=== PATIENT | female | born 1940 ===

== ENCOUNTER 2017-04-23 09:22 | Inpatient (IN) | payer OTHER ==
[2017-04-23] MEDS ORDERED: Aspirin 325 mg EC Tablets PO STA (10:00)
--- NOTE | 2017-04-23 10:04 | C.PDOC ---
History Of Present Illness 76 yo female, hx of htn, hld, presents with cp. as per pt, pain started yesterday, no fevers, cough, n/v/d, urinary changes. pt cannot characterized pain Time Seen by Provider: 04/23/17 09:36 Chief Complaint (Nursing): Chest Pain Past Medical History Reviewed: Historical Data, Nursing Documentation, Vital Signs Vital Signs: Last Vital Signs Temp 97.7 F 04/23/17 09:44 Pulse 58 L 04/23/17 11:27 Resp 18 04/23/17 11:27 BP 138/69 04/23/17 11:27 Pulse Ox 99 04/23/17 13:25 - Medical History PMH: Alzheimer's Disease (beginning stages), Diabetes, HTN, Hypercholesterolemia Denies: Chronic Kidney Disease - [facility] Procedures CATARAC PHACOEMULS/ASPIR (03/22/13) INSERT LENS AT CATAR EXT (03/22/13) Family History: States: Unknown Family Hx - Social History Hx Tobacco Use: No Hx Alcohol Use: No Hx Substance Use: No - Immunization History Hx Tetanus Toxoid Vaccination: No Hx Influenza Vaccination: No Hx Pneumococcal Vaccination: No Review Of Systems Except As Marked, All Systems Reviewed And Found Negative. Cardiovascular: Positive for: Chest Pain Physical Exam - Physical Exam Appears: Well, No Acute Distress Skin: Normal Color, Warm, Dry Eye(s): bilateral: Normal Inspection, PERRL, EOMI Nose: Normal Throat: Normal Neck: Normal Chest: Tenderness (mild midsternal) Cardiovascular: Rhythm Regular Respiratory: Normal Breath Sounds Gastrointestinal/Abdominal: Normal Exam Back: Normal Inspection Extremity: Normal ROM ED Course And Treatment - Laboratory Results Result Diagrams: 04/23/17 10:05 04/23/17 10:05 O2 Sat by Pulse Oximetry: 99 Medical Decision Making Medical Decision Making: cp r/o acs. ekg sinus ward [address] t wave changes, no change from previous. Disposition - Disposition Disposition: HOSPITALIZED Disposition Time: 01:00 Condition: STABLE - Clinical Impression Clinical Impression: Chest pain Decision To Admit - Pt Status Changed To: Hospital Disposition Of: Observation - . Bed Request Type: Telemetry Admitting Physician: Malgorzata Davalos Patient Diagnosis: Chest pain
[2017-04-23 10:12] LABS: BASO % 0.5 % (0.0-2.0); EOS # 0.1 K/uL (0.0-0.7); HEMATOCRIT 38.7 % (34.0-47.0); LYMPH # 2.5 K/uL (1.0-4.3); LYMPH % 32.9 % (20.0-40.0); MEAN CELL VOLUME 87.3 fL (81.0-99.0); MEAN CORPUSCULAR HEMOGLOBIN 29.9 pg (27.0-31.0); MEAN CORPUSCULAR HGB CONC 34.3 g/dL (33.0-37.0); MEAN PLATELET VOLUME 9.5 fL (7.2-11.7); MONO # 0.4 K/uL (0.0-0.8); RED CELL DISTRIBUTION WIDTH 13.3 % (11.5-14.5); WHITE BLOOD COUNT 7.7 K/uL (4.8-10.8)
[2017-04-23 10:20] LABS: INR 1.1; PARTIAL THROMBOPLASTIN TIME 31 SECONDS (21-34)
[2017-04-23 10:22] LABS: ALKALINE PHOSPHATASE 43 U/L (38-126); ALT/SGPT 33 U/L (9-52); AST/SGOT 29 U/L (14-36); BILIRUBIN,TOTAL 0.8 mg/dL (0.2-1.3); BLOOD UREA NITROGEN 15 mg/dL (7-17); CALCIUM 9.3 mg/dl (8.6-10.4); CARBON DIOXIDE 24 mmol/L (22-30); CHLORIDE 99 mmol/L (98-107); GFR AFRICAN-AMERICAN > 60; GLUCOSE,RANDOM 60 mg/dL (65-105); POTASSIUM 3.8 mmol/L (3.6-5.2); SODIUM 135 mmol/L (132-148)
--- NOTE | 2017-04-23 10:46 | RAD ---
PROCEDURE: CHEST RADIOGRAPH, 1 VIEW HISTORY: chest pain COMPARISON: 03/09/2016 FINDINGS: LUNGS: Clear. PLEURA: No pneumothorax or pleural fluid seen. CARDIOVASCULAR: Normal. OSSEOUS STRUCTURES: No significant abnormalities. VISUALIZED UPPER ABDOMEN: Normal. OTHER FINDINGS: None. IMPRESSION: No active disease.
--- NOTE | 2017-04-23 13:35 | CP.PCM.CON ---
Addendum entered and electronically signed by Pete Armstrong DO 21:18: Note that ESR and CRP added to orders Original Note: <Pete Armstrong - Last Filed: 04/23/17 20:43> History of Present Illness - History of Present Illness History of Present Illness: Cardiology consult note for Dr. Randy Jeong DO, PGY-8 Reason For Consult: CP r/o ACS HPI: 76 F with pertinent PMHx of DM, HTN, HLD, presents with 18 hour duration of sharp, non-radiating, waxing and waning cp of 8/10 severity, which gets better at rest and is agitated by pressing on cw, and is associated with mild n/v and sob. Pt denies any family or personal history of cardiac events. Of note, she was admitted for chest pain in 03/2016, but she reports that this time the cp feels different. Pt lives a fairly active lifestyle and is able to walk for extended periods of time without sob. Pt does not complain of claudication or pain-limited movement. At this time, patient is not experiencing any cp except when palpated. Emesis and sob have resolved, but patient states that she does feel dizzy. 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 Of note, patient did have a recent URI which has resolved recently. Pt denies f/ch/diarrhea/dysuria/frequency/urgency/hematuria/hematochezia/ hematemesis. Pt's daughter Alfred? at bedside providing translation PSHx: Cataracts b/l PMHx: DM, HTN, HLD, Alzheimer's All: NKDA SocHx: Denies EtOH, drug use, illicit drug use; lives with daughter and grandson Hosp: 03/2016 CP FamHx: Brother- DM (); sister- DM Meds: Metformin 500mg PO BID, Fenofibrate 48 mg daily, Lisinopirl 30mg daily, Simvastatin 10mg daily PMD: [facility] ROS: Const'l: pt denies fever, chills, generalized weakness ENT: pt denies dysphagia, otalgia, hearing deficit, rhinorrhea Eyes: pt denies sudden loss of vision, diplopia, blurred vision MSK: pt denies muscle stiffness, joint pain, extremity cramping Cardio: + see hpi Pulm: pt denies cough, hemoptysis, wheeze GI: + a few bouts of emesis a few days ago + n/v; pt denies loss of appetite , abdominal pain, constipation, melena, d : pt denies burning on urination, urinary frequency, hematuria, urinary urgency Neuro: pt denies paresis, paresthesia, dizziness, aldridge, numbness, tingling Derm: pt denies skin changes, lesions, nail changes Endo: pt denies intolerance to heat/cold, diaphoresis, night sweats, polydipsia Psych: pt denies anxiety, depression, mood changes Past Patient History - Infectious Disease Hx of Infectious Diseases: None - Past Medical History & Family History Past Medical History?: Yes - Past Social History Smoking Status: Never Smoked - CARDIAC Hx Hypercholesterolemia: Yes Hx Hypertension: Yes - PULMONARY Hx Respiratory Disorders: No - NEUROLOGICAL Hx Alzheimer's Disease: Yes (beginning stages) - HEENT Hx HEENT Problems: No - RENAL Hx Chronic Kidney Disease: No - ENDOCRINE/METABOLIC Hx Endocrine Disorders: Yes Hx Diabetes Mellitus Type 1: Yes - HEMATOLOGICAL/ONCOLOGICAL Hx Blood Disorders: No - INTEGUMENTARY Hx Dermatological Problems: No - MUSCULOSKELETAL/RHEUMATOLOGICAL Hx Musculoskeletal Disorders: No Hx Falls: No - GASTROINTESTINAL Hx Gastrointestinal Disorders: No - GENITOURINARY/GYNECOLOGICAL Hx Genitourinary Disorders: No - PSYCHIATRIC Hx Substance Use: No - SURGICAL HISTORY Hx Surgeries: Yes Hx Cataract Extraction: Yes - ANESTHESIA Hx Anesthesia: Yes Hx Anesthesia Reactions: No Hx Malignant Hyperthermia: No Meds Allergies/Adverse Reactions: Allergies Allergy/AdvReac Type Severity Reaction Status Date / Time No Known Allergies Allergy Verified 06/22/15 20:48 - Medications Medications: Current Medications Donepezil HCl (Aricept) 10 mg PO HS MINAL Ergocalciferol (Drisdol 50,000 Intl Units Cap) 1 cap PO QWK [facility] Heparin Sodium (Porcine) (Heparin) 5,000 units SC Q8 MINAL Lisinopril (Zestril) 20 mg PO DAILY MINAL Ondansetron HCl (Zofran Inj) 4 mg IVP Q6 PRN PRN Reason: Nausea/Vomiting Rosuvastatin Calcium (Crestor) 10 mg PO HS MINAL Physical Exam - Additional Findings Additional findings: Phys Exam: VS as below Const'l: a&o x 4, nad, pleasant, [place] island[place] speaking Head/Neck: neck supple, no jvd, trachea midline, carotid midline, no cervical /head mass Eyes: mitali, nonicteric sclera, eom intact ENT: auditory acuity grossly intact, throat not congested, no nasal deformity Cardio: +TTP at LSB; rrr, no m/r/g, no carotid bruit, nml s1, s2 Pulm: no accessory muscle use, equal nml breath sounds bilaterally, ctab Abd: s/nt/nd, nbs x 4 q, no palpable masses Derm: no rashes, no ulcers, no lesions Extr: no edema, no cyanosis, no calf tenderness, no lesions, no varicosities Neuro: cn II-XII grossly intact, ue and le 5/5 muscle strength bilaterally, no los ue, le bilaterally and core Results - Vital Signs Recent Vital Signs: Last Vital Signs Temp 97.7 F 04/23/17 09:44 Pulse 58 L 04/23/17 11:27 Resp 18 04/23/17 11:27 BP 138/69 04/23/17 11:27 Pulse Ox 99 04/23/17 13:25 - Labs Result Diagrams: 04/23/17 10:05 04/23/17 10:05 Labs: Laboratory Results - last 24 hr 04/23/17 04/23/17 04/23/17 09:40 10:05 10:05 WBC 7.7 RBC 4.44 Hgb 13.3 Hct 38.7 MCV 87.3 MCH 29.9 MCHC 34.3 RDW 13.3 Plt Count 185 MPV 9.5 Neut % (Auto) 60.6 Lymph % (Auto) 32.9 [place] % (Auto) 5.0 Eos % (Auto) 1.0 Baso % (Auto) 0.5 Neut # 4.7 Lymph # 2.5 [place] # 0.4 Eos # 0.1 Baso # 0.0 PT 13.0 H INR 1.1 APTT 31 D-Dimer, Quantitative < 200 Sodium Potassium Chloride Carbon Dioxide Anion Gap BUN Creatinine Est GFR ( Amer) Est GFR (Non-Af Amer) POC Glucose (mg/dL) 60 L Random Glucose Hemoglobin A1c Calcium Total Bilirubin AST ALT Alkaline Phosphatase Troponin I NT-Pro-B Natriuret Pep Total Protein Albumin Globulin Albumin/Globulin Ratio Lipase Influenza Typ A,B (EIA) 04/23/17 04/23/17 04/23/17 10:05 10:21 12:20 WBC RBC Hgb Hct MCV MCH MCHC RDW Plt Count MPV Neut % (Auto) Lymph % (Auto) [place] % (Auto) Eos % (Auto) Baso % (Auto) Neut # Lymph # [place] # Eos # Baso # PT INR APTT D-Dimer, Quantitative Sodium 135 Potassium 3.8 Chloride 99 Carbon Dioxide 24 Anion Gap 16 BUN 15 Creatinine 0.6 L Est GFR ( Amer) > 60 Est GFR (Non-Af Amer) > 60 POC Glucose (mg/dL) 105 Random Glucose 60 L Hemoglobin A1c 7.4 H Calcium 9.3 Total Bilirubin 0.8 AST 29 ALT 33 Alkaline Phosphatase 43 Troponin I < 0.0120 NT-Pro-B Natriuret Pep 31.1 Total Protein 9.0 H Albumin 4.6 Globulin 4.4 H Albumin/Globulin Ratio 1.0 Lipase 56 Influenza Typ A,B (EIA) 04/23/17 12:30 WBC RBC Hgb Hct MCV MCH MCHC RDW Plt Count MPV Neut % (Auto) Lymph % (Auto) [place] % (Auto) Eos % (Auto) Baso % (Auto) Neut # Lymph # [place] # Eos # Baso # PT INR APTT D-Dimer, Quantitative Sodium Potassium Chloride Carbon Dioxide Anion Gap BUN Creatinine Est GFR ( Amer) Est GFR (Non-Af Amer) POC Glucose (mg/dL) Random Glucose Hemoglobin A1c Calcium Total Bilirubin AST ALT Alkaline Phosphatase Troponin I NT-Pro-B Natriuret Pep Total Protein Albumin Globulin Albumin/Globulin Ratio Lipase Influenza Typ A,B (EIA) Negative for flu a/b Assessment & Plan - Assessment and Plan (Free Text) Assessment: A/P 76 F with PMHx pertinent for DM, HLD, HTN presenting with CP. Was last here in 03/2017 for similar complaints. EKG - Sinus ward with non-specific T Changes, but no JIMENEZ; on exam, NSR; Tropes - Neg X 1. CP is reproducible on exam Chest Pain r/o ACS, likely 2/2 Musculoskeletal Pain - Tropes negative X 1, EKG shows NSR at bedside, Sinus ward on admission - ECHO ordered - We will reassess DM - RISS HTN - Lisinopirl 30mg daily HLD - Fenofibrate 48 mg daily, , Simvastatin 10mg daily Asymptomatic Sinus Bradycardia - Continue to monitor Thank you for this interesting consult Pete Jeong DO PGY - 1, d/w Dr. Padilla <RandyRobert - Last Filed: 04/24/17 22:48> Meds - Medications Medications: Current Medications Donepezil HCl (Aricept) 10 mg PO HS MINAL Ergocalciferol (Drisdol 50,000 Intl Units Cap) 1 cap PO QWK MINAL Heparin Sodium (Porcine) (Heparin) 5,000 units SC Q8 MINAL Last Admin: 04/23/17 14:25 Dose: 5,000 units Lisinopril (Zestril) 20 mg PO DAILY MINAL Ondansetron HCl (Zofran Inj) 4 mg IVP Q6 PRN PRN Reason: Nausea/Vomiting Pantoprazole Sodium (Protonix Ec Tab) 40 mg PO DAILY MINAL Rosuvastatin Calcium (Crestor) 10 mg PO HS MINAL Results - Vital Signs Recent Vital Signs: Last Vital Signs Temp 97.7 F 04/23/17 12:45 Pulse 62 04/23/17 12:45 Resp 18 04/23/17 12:45 BP 136/69 04/23/17 12:45 Pulse Ox 99 04/23/17 13:25 - Labs Result Diagrams: 04/24/17 11:44 04/24/17 10:16 Labs: Laboratory Results - last 24 hr 04/23/17 04/23/17 04/23/17 09:40 10:05 10:05 WBC 7.7 RBC 4.44 Hgb 13.3 Hct 38.7 MCV 87.3 MCH 29.9 MCHC 34.3 RDW 13.3 Plt Count 185 MPV 9.5 Neut % (Auto) 60.6 Lymph % (Auto) 32.9 [place] % (Auto) 5.0 Eos % (Auto) 1.0 Baso % (Auto) 0.5 Neut # 4.7 Lymph # 2.5 [place] # 0.4 Eos # 0.1 Baso # 0.0 PT 13.0 H INR 1.1 APTT 31 D-Dimer, Quantitative < 200 Sodium Potassium Chloride Carbon Dioxide Anion Gap BUN Creatinine Est GFR ( Amer) Est GFR (Non-Af Amer) POC Glucose (mg/dL) 60 L Random Glucose Hemoglobin A1c Calcium Total Bilirubin AST ALT Alkaline Phosphatase Troponin I NT-Pro-B Natriuret Pep Total Protein Albumin Globulin Albumin/Globulin Ratio Lipase Influenza Typ A,B (EIA) 04/23/17 04/23/17 04/23/17 10:05 10:21 12:20 WBC RBC Hgb Hct MCV MCH MCHC RDW Plt Count MPV Neut % (Auto) Lymph % (Auto) [place] % (Auto) Eos % (Auto) Baso % (Auto) Neut # Lymph # [place] # Eos # Baso # PT INR APTT D-Dimer, Quantitative Sodium 135 Potassium 3.8 Chloride 99 Carbon Dioxide 24 Anion Gap 16 BUN 15 Creatinine 0.6 L Est GFR ( Amer) > 60 Est GFR (Non-Af Amer) > 60 POC Glucose (mg/dL) 105 Random Glucose 60 L Hemoglobin A1c 7.4 H Calcium 9.3 Total Bilirubin 0.8 AST 29 ALT 33 Alkaline Phosphatase 43 Troponin I < 0.0120 NT-Pro-B Natriuret Pep 31.1 Total Protein 9.0 H Albumin 4.6 Globulin 4.4 H Albumin/Globulin Ratio 1.0 Lipase 56 Influenza Typ A,B (EIA) 04/23/17 12:30 WBC RBC Hgb Hct MCV MCH MCHC RDW Plt Count MPV Neut % (Auto) Lymph % (Auto) [place] % (Auto) Eos % (Auto) Baso % (Auto) Neut # Lymph # [place] # Eos # Baso # PT INR APTT D-Dimer, Quantitative Sodium Potassium Chloride Carbon Dioxide Anion Gap BUN Creatinine Est GFR ( Amer) Est GFR (Non-Af Amer) POC Glucose (mg/dL) Random Glucose Hemoglobin A1c Calcium Total Bilirubin AST ALT Alkaline Phosphatase Troponin I NT-Pro-B Natriuret Pep Total Protein Albumin Globulin Albumin/Globulin Ratio Lipase Influenza Typ A,B (EIA) Negative for flu a/b Assessment & Plan (1) Chest pain Assessment and Plan: sx typical of CAD will need further ischemic evaluation Status: Acute (2) Sinus bradycardia Status: Acute (3) Diabetes Status: Chronic Priority: Medium (4) HLD (hyperlipidemia) Status: Chronic Priority: Medium (5) HTN (hypertension) Status: Chronic Priority: Medium Attending/Attestation - Attestation I have personally seen and examined this patient.: Yes I have fully participated in the care of the patient.: Yes I have reviewed all pertinent clinical information: Yes Notes (Text): 04/24/17 22:47 chest pain atypical - reproducible cont to monitor BP control further w/u based on echo findings
--- NOTE | 2017-04-23 13:51 | CP.PCM.HP ---
<Jordana,Edgar R - Last Filed: 04/23/17 18:53> History of Present Illness - History of Present Illness History of Present Illness: CC: "I'm having chest pain" HPI: Translation provided by daughter who was bedside. This is a 76 year old female with a PMHx of HTN, DM2, HLD, Alzheimers, who presents to the ER for a 48 hour history of dizziness, non-bloody/non-bilious emesis x5 and a 24 hour history of left sided intermittent chest pain that she describes as sharp in quality, rated 8/10, and that is reproducible. She also reports diaphoresis with the chest pain. She denies radiation of pain into her arms or neck. In the last 1 week she's also had a decrease in appetite with associated nausea as well as a frontotemporal headache. She was admitted for chest pain in 03/2016 but says this type of chest pain is different from that admission. 2 weeks ago she had a URI and was given OTC theraflu and the symptoms have resolved. Per daughter, she has a recent diagnosis of alzheimer's 10/2016 and began to see Neurologist Dr Cartwright beginning in 10/2016. At baseline the patient is able to ambulate, she lives with her daughter at home who is involved with the patient's care. PMD: Dr Marrero PMHx: DM, HTN, HLD, Alzhemer's (diagnosed 10/2016) PSHx: cataracts both eyes, L ankle surgery Home medications: Metformin 500mg PO BID, Fenofibrate 48 mg daily, Lisinopirl 30mg daily, Simvastatin 10mg daily Allergies: no known allergies FamHx: Brother- DM (); sister- DM SocialHx: denies EtOH, tobacco use, illicit drug use; lives with daughter and grandson Present on Admission - Present on Admission Any Indicators Present on Admission: No Review of Systems - Constitutional Constitutional: Fatigue, Headache, Weakness. absent: Chills, Fever, Increased Appetite, Night Sweats - EENT Eyes: absent: Change in Vision Ears: absent: Ear Pain Nose/Mouth/Throat: absent: Nasal Discharge - Cardiovascular Cardiovascular: Chest Pain, Diaphoresis. absent: Dyspnea on Exertion, Pain Radiating to Arm/Neck/Jaw, Leg Edema, Lightheadedness, Palpitations, Syncope Additional comments: As per HPI - Respiratory Respiratory: absent: Cough, Dyspnea, Hemoptysis, Wheezing - Gastrointestinal Gastrointestinal: Abdominal Pain, Nausea. absent: Constipation, Diarrhea, Vomiting Additional comments: epigastric - Genitourinary Genitourinary: absent: Dysuria - Musculoskeletal Musculoskeletal: Back Pain. absent: Myalgias - Integumentary Integumentary: absent: Lesions - Neurological Neurological: Dizziness. absent: Confusion, Convulsions Past Patient History - Infectious Disease Hx of Infectious Diseases: None - Past Medical History & Family History Past Medical History?: Yes - Past Social History Smoking Status: Never Smoked - CARDIAC Hx Hypercholesterolemia: Yes Hx Hypertension: Yes - PULMONARY Hx Respiratory Disorders: No - NEUROLOGICAL Hx Alzheimer's Disease: Yes (beginning stages) - HEENT Hx HEENT Problems: No - RENAL Hx Chronic Kidney Disease: No - ENDOCRINE/METABOLIC Hx Endocrine Disorders: Yes Hx Diabetes Mellitus Type 1: Yes - HEMATOLOGICAL/ONCOLOGICAL Hx Blood Disorders: No - INTEGUMENTARY Hx Dermatological Problems: No - MUSCULOSKELETAL/RHEUMATOLOGICAL Hx Musculoskeletal Disorders: No Hx Falls: No - GASTROINTESTINAL Hx Gastrointestinal Disorders: No - GENITOURINARY/GYNECOLOGICAL Hx Genitourinary Disorders: No - PSYCHIATRIC Hx Substance Use: No - SURGICAL HISTORY Hx Surgeries: Yes Hx Cataract Extraction: Yes - ANESTHESIA Hx Anesthesia: Yes Hx Anesthesia Reactions: No Hx Malignant Hyperthermia: No Meds Allergies/Adverse Reactions: Allergies Allergy/AdvReac Type Severity Reaction Status Date / Time No Known Allergies Allergy Verified 06/22/15 20:48 Physical Exam - Constitutional Appears: In Acute Distress - Head Exam Head Exam: ATRAUMATIC, NORMAL INSPECTION - Eye Exam Eye Exam: EOMI Pupil Exam: PERRL - ENT Exam ENT Exam: Mucous Membranes Dry - Neck Exam Neck exam: Positive for: Normal Inspection. Negative for: Lymphadenopathy, Tenderness - Respiratory Exam Respiratory Exam: Clear to Auscultation Bilateral, NORMAL BREATHING PATTERN. absent: Rales, Rhonchi, Wheezes - Cardiovascular Exam Cardiovascular Exam: REGULAR RHYTHM, +S1, +S2. absent: Bradycardia, Tachycardia , Irregular Rhythm, JVD, Systolic Murmur - GI/Abdominal Exam GI & Abdominal Exam: Guarding, Normal Bowel Sounds, Soft, Tenderness. absent: Distended, Firm, Hernia, Rebound, Rigid Additional comments: tender to palpation in epigastric region - Extremities Exam Extremities exam: Positive for: normal capillary refill, normal inspection, pedal pulses present. Negative for: calf tenderness, pedal edema - Back Exam Back exam: tenderness - Neurological Exam Neurological exam: Alert, CN II-XII Intact, Oriented x3 - Psychiatric Exam Psychiatric exam: Normal Affect, Normal Mood - Skin Skin Exam: Intact, Normal Color, Warm Results - Vital Signs Recent Vital Signs: Last Vital Signs Temp 97.7 F 04/23/17 12:45 Pulse 62 04/23/17 12:45 Resp 18 04/23/17 12:45 BP 136/69 04/23/17 12:45 Pulse Ox 99 04/23/17 13:25 - Labs Result Diagrams: 04/23/17 10:05 04/23/17 10:05 Labs: Laboratory Results - last 24 hr 04/23/17 04/23/17 04/23/17 09:40 10:05 10:05 WBC 7.7 RBC 4.44 Hgb 13.3 Hct 38.7 MCV 87.3 MCH 29.9 MCHC 34.3 RDW 13.3 Plt Count 185 MPV 9.5 Neut % (Auto) 60.6 Lymph % (Auto) 32.9 [place] % (Auto) 5.0 Eos % (Auto) 1.0 Baso % (Auto) 0.5 Neut # 4.7 Lymph # 2.5 [place] # 0.4 Eos # 0.1 Baso # 0.0 PT 13.0 H INR 1.1 APTT 31 D-Dimer, Quantitative < 200 Sodium Potassium Chloride Carbon Dioxide Anion Gap BUN Creatinine Est GFR ( Amer) Est GFR (Non-Af Amer) POC Glucose (mg/dL) 60 L Random Glucose Hemoglobin A1c Calcium Total Bilirubin AST ALT Alkaline Phosphatase Troponin I NT-Pro-B Natriuret Pep Total Protein Albumin Globulin Albumin/Globulin Ratio Lipase Influenza Typ A,B (EIA) 04/23/17 04/23/17 04/23/17 10:05 10:21 12:20 WBC RBC Hgb Hct MCV MCH MCHC RDW Plt Count MPV Neut % (Auto) Lymph % (Auto) [place] % (Auto) Eos % (Auto) Baso % (Auto) Neut # Lymph # [place] # Eos # Baso # PT INR APTT D-Dimer, Quantitative Sodium 135 Potassium 3.8 Chloride 99 Carbon Dioxide 24 Anion Gap 16 BUN 15 Creatinine 0.6 L Est GFR ( Amer) > 60 Est GFR (Non-Af Amer) > 60 POC Glucose (mg/dL) 105 Random Glucose 60 L Hemoglobin A1c 7.4 H Calcium 9.3 Total Bilirubin 0.8 AST 29 ALT 33 Alkaline Phosphatase 43 Troponin I < 0.0120 NT-Pro-B Natriuret Pep 31.1 Total Protein 9.0 H Albumin 4.6 Globulin 4.4 H Albumin/Globulin Ratio 1.0 Lipase 56 Influenza Typ A,B (EIA) 04/23/17 12:30 WBC RBC Hgb Hct MCV MCH MCHC RDW Plt Count MPV Neut % (Auto) Lymph % (Auto) [place] % (Auto) Eos % (Auto) Baso % (Auto) Neut # Lymph # [place] # Eos # Baso # PT INR APTT D-Dimer, Quantitative Sodium Potassium Chloride Carbon Dioxide Anion Gap BUN Creatinine Est GFR ( Amer) Est GFR (Non-Af Amer) POC Glucose (mg/dL) Random Glucose Hemoglobin A1c Calcium Total Bilirubin AST ALT Alkaline Phosphatase Troponin I NT-Pro-B Natriuret Pep Total Protein Albumin Globulin Albumin/Globulin Ratio Lipase Influenza Typ A,B (EIA) Negative for flu a/b Assessment & Plan (1) Chest pain Assessment and Plan: Cardiology consult, Dr Padilla - mckenna typical of CAD On telemetry EKG shows t-wave inversions which is a change from prior EKG DEEPIKA negative x2, F/U 3rd DEEPIKA BNP 31 (WNL) F/U ECHO Status: Acute Priority: High (2) Nausea & vomiting Assessment and Plan: GI consult, Dr Shepard concern for diabetic gastroparesis Status: Acute (3) Diabetes Assessment and Plan: HgbA1C 7.4 RISS - medium dose protocol Hypoglycemia protocol Holding home meds Lantus and Metformin for now Status: Chronic Priority: Medium (4) HLD (hyperlipidemia) Assessment and Plan: Contine home med Rosuvastatin 10mg PO HS F/U Lipid Panel Status: Chronic Priority: Medium (5) HTN (hypertension) Assessment and Plan: BP well controlled Continue home med Lisinopril 20mg PO QD Status: Chronic Priority: Medium (6) Alzheimers disease Assessment and Plan: Continue home med Aricept 10mg PO HS Status: Acute (7) Prophylactic measure Assessment and Plan: SCDs Protonix 40mg PO QD Heparin 5000u SC Q8H Status: Acute Priority: Low <Malgorzata Davalos V - Last Filed: 04/25/17 22:46> Results - Vital Signs Recent Vital Signs: Last Vital Signs Temp 97.3 F L 04/25/17 15:26 Pulse 62 04/25/17 15:26 Resp 18 04/25/17 15:26 BP 153/74 H 04/25/17 15:26 Pulse Ox 94 L 04/25/17 15:26 - Labs Result Diagrams: 04/25/17 07:35 04/25/17 07:35 Labs: Laboratory Results - last 24 hr 04/25/17 04/25/17 04/25/17 06:24 07:35 07:35 WBC 6.1 RBC 4.01 Hgb 12.1 Hct 35.0 MCV 87.4 MCH 30.2 MCHC 34.6 RDW 13.2 Plt Count 164 MPV 9.6 Neut % (Auto) 48.8 L Lymph % (Auto) 43.1 H [place] % (Auto) 5.0 Eos % (Auto) 2.5 Baso % (Auto) 0.6 Neut # 3.0 Lymph # 2.6 [place] # 0.3 Eos # 0.2 Baso # 0.0 Sodium 135 Potassium 3.7 Chloride 102 Carbon Dioxide 25 Anion Gap 12 BUN 18 H Creatinine 0.7 Est GFR ( Amer) > 60 Est GFR (Non-Af Amer) > 60 POC Glucose (mg/dL) 124 H Random Glucose 115 H Calcium 8.6 Total Bilirubin 0.6 AST 18 ALT 27 Alkaline Phosphatase 47 Total Protein 6.5 Albumin 3.8 Globulin 2.7 Albumin/Globulin Ratio 1.4 25-OH Vitamin D Total TSH 3rd Generation 2.38 RPR 04/25/17 04/25/17 04/25/17 07:35 07:35 11:18 WBC RBC Hgb Hct MCV MCH MCHC RDW Plt Count MPV Neut % (Auto) Lymph % (Auto) [place] % (Auto) Eos % (Auto) Baso % (Auto) Neut # Lymph # [place] # Eos # Baso # Sodium Potassium Chloride Carbon Dioxide Anion Gap BUN Creatinine Est GFR ( Amer) Est GFR (Non-Af Amer) POC Glucose (mg/dL) 127 H Random Glucose Calcium Total Bilirubin AST ALT Alkaline Phosphatase Total Protein Albumin Globulin Albumin/Globulin Ratio 25-OH Vitamin D Total < 12.8 L TSH 3rd Generation RPR Nonreactive 04/25/17 04/25/17 17:06 21:31 WBC RBC Hgb Hct MCV MCH MCHC RDW Plt Count MPV Neut % (Auto) Lymph % (Auto) [place] % (Auto) Eos % (Auto) Baso % (Auto) Neut # Lymph # [place] # Eos # Baso # Sodium Potassium Chloride Carbon Dioxide Anion Gap BUN Creatinine Est GFR ( Amer) Est GFR (Non-Af Amer) POC Glucose (mg/dL) 112 H 119 H Random Glucose Calcium Total Bilirubin AST ALT Alkaline Phosphatase Total Protein Albumin Globulin Albumin/Globulin Ratio 25-OH Vitamin D Total TSH 3rd Generation RPR Attending/Attestation - Attestation I have personally seen and examined this patient.: Yes I have fully participated in the care of the patient.: Yes I have reviewed all pertinent clinical information: Yes Notes (Text): This is late computer entry for 04/23/17. Patient seen, examined, and case discussed with day-time resident. Patient seen in the Emergency Room in Bed 7 with the patient and patient's daughter at bedside. Discussed admitting orders with the day-time resident. Patient has cardiac risk factors including diabetes, hypertension, lipid disorder, and T waves which are new compared to prior EKG. Will place for cardiology consult, ROMIX3, and echocardiogram Patient also complaining of abdominal pain, associated nausea/vomitting--> considering diabetic gastroperesis-->will place for GI consult. Assessment/Plan (1) Chest pain Assessment and Plan: * Observation on telemetry * Cardiology consult, Dr Padilla, on board-->help appreciated * sx typical of CAD * EKG shows t-wave inversions which is a change from prior EKG * DEEPIKA negative x2, F/U 3rd DEEPIKA * pro-BNP 31 (WNL) * D-dimer * Chest xray (04/23): no active disease * F/U ECHO * Given Aspirin 325mg PO in the ED * Start Lisinopril 20mg PO daily * Start Crestor 20mg POqHS * Order for a1c, lipid panel Status: Acute Priority: High (2) Nausea & vomiting Assessment and Plan: * GI consult bellperson, Dr Shepard, help appreciated * concern for diabetic gastroparesis? Status: Acute (3) Diabetes Assessment and Plan: * HgbA1C 7.4 * f/u lipid panel * RISS - medium dose protocol * Hypoglycemia protocol * Holding home meds Lantus and Metformin for now Status: Chronic Priority: Medium (4) HLD (hyperlipidemia) Assessment and Plan: * Continue home med Rosuvastatin 10mg PO HS * F/U Lipid Panel Status: Chronic Priority: Medium (5) HTN (hypertension) Assessment and Plan: * BP well controlled * Continue home med Lisinopril 20mg PO QD Status: Chronic Priority: Medium (6) Alzheimers disease Assessment and Plan: * Continue home med Aricept 10mg PO HS Status: Chronic (7) History of Vitamin D deficiency Assessment and Plan: * f/u vitamin D level Status: Chronic (8) Prophylactic measure Assessment and Plan: * SCDs * Protonix 40mg PO QD * Heparin 5000u SC Q8H Status: Acute Priority: Low
[2017-04-23] MEDS ORDERED: Glucagon Recombinant 1 mg Inj IM PRN (18:59)
[2017-04-23] MEDS ORDERED: Dextrose 50% SYRINGE Inj (50 ml) IV PRN (18:59)
[2017-04-23] MEDS: (Novolin R) Insulin Human Regular 100 units/ml vial SC SCH (21:49)
[2017-04-23 22:21] LABS: RBC URINE 1 /hpf (0-3); TRANSITIONAL EPITHIAL 1 /hpf (0-3); URINE BACTERIA MANY (<OCC); URINE BILIRUBIN NEGATIVE (NEGATIVE); URINE BLOOD NEGATIVE (NEGATIVE); URINE COLOR Yellow (YELLOW); URINE GLUCOSE (UA) NORMAL (Normal); URINE KETONE NEGATIVE (NEGATIVE); URINE LEUKOCYTE ESTERASE 3+ Leu/uL (Negative); URINE PROTEIN NEGATIVE (NEGATIVE); WBC URINE 83 /hpf (0-5)
[2017-04-24 08:25] LABS: CHOLESTEROL 181 mg/dL (0-199)
[2017-04-24] MEDS: (Novolin R) Insulin Human Regular 100 units/ml vial SC SCH ×4 (08:38→22:19)
[2017-04-24] MEDS: Pantoprazole 40 mg EC Tab PO SCH (10:16)
[2017-04-24 10:26] LABS: BASO % 0.8 % (0.0-2.0); EOS # 0.1 K/uL (0.0-0.7); HEMATOCRIT 35.1 % (34.0-47.0); LYMPH # 2.2 K/uL (1.0-4.3); LYMPH % 39.8 % (20.0-40.0); MEAN CELL VOLUME 87.5 fL (81.0-99.0); MEAN CORPUSCULAR HEMOGLOBIN 29.8 pg (27.0-31.0); MEAN CORPUSCULAR HGB CONC 34.1 g/dL (33.0-37.0); MONO # 0.3 K/uL (0.0-0.8); NRBC % 0.2 % (0.0-2.0); RED CELL DISTRIBUTION WIDTH 13.2 % (11.5-14.5); WHITE BLOOD COUNT 5.5 K/uL (4.8-10.8)
--- NOTE | 2017-04-24 10:32 | CP.PCM.CON ---
<Sugey Merchant - Last Filed: 04/24/17 10:25> History of Present Illness - History of Present Illness History of Present Illness: GI Fellow PGY4 Consult Note This is a 76 year old female with a PMHx of HTN, DM2, HLD, Alzheimers, who presents to the ER for dizziness and non-bloody/non-bilious emesis. Per review of ER records pt also reported left sided intermittent chest pain for which cardiology is seeing patient. Pt denies any abdominal pain, nausea or vomiting besides the episode prior to coming to the ER associate with vertigo like symptoms. Pt reports that she was straining for a bowel movement when she started to experience dizziness with the room spinning and became diaphoretic. Otherwise pt denies constipation, rectal bleeding. No prior EGD or Colonoscopies. at the time of evaluation pt was eating her breakfast with no reported nausea, vomiting or abdominal pain. ROS: A 12pt ROS was negative except as above. PMHx: DM, HTN, HLD, Alzhemer's (diagnosed 10/2016) PSHx: cataracts both eyes, L ankle surgery FHx: DM SHx: denies EtOH, tobacco use, illicit drug use Past Patient History - Infectious Disease Hx of Infectious Diseases: None - Past Medical History & Family History Past Medical History?: Yes - Past Social History Smoking Status: Never Smoked - CARDIAC Hx Hypercholesterolemia: Yes Hx Hypertension: Yes - PULMONARY Hx Respiratory Disorders: No - NEUROLOGICAL Hx Alzheimer's Disease: Yes (beginning stages) - HEENT Hx HEENT Problems: No - RENAL Hx Chronic Kidney Disease: No - ENDOCRINE/METABOLIC Hx Endocrine Disorders: Yes Hx Diabetes Mellitus Type 1: Yes - HEMATOLOGICAL/ONCOLOGICAL Hx Blood Disorders: No - INTEGUMENTARY Hx Dermatological Problems: No - MUSCULOSKELETAL/RHEUMATOLOGICAL Hx Musculoskeletal Disorders: No Hx Falls: No - GASTROINTESTINAL Hx Gastrointestinal Disorders: No - GENITOURINARY/GYNECOLOGICAL Hx Genitourinary Disorders: No - PSYCHIATRIC Hx Substance Use: No - SURGICAL HISTORY Hx Surgeries: Yes Hx Cataract Extraction: Yes - ANESTHESIA Hx Anesthesia: Yes Hx Anesthesia Reactions: No Hx Malignant Hyperthermia: No Meds Allergies/Adverse Reactions: Allergies Allergy/AdvReac Type Severity Reaction Status Date / Time No Known Allergies Allergy Verified 06/22/15 20:48 - Medications Medications: Current Medications Dextrose (Dextrose 50% Inj) 0 ml IV STAT PRN; Protocol PRN Reason: Hypoglycemia Protocol Dextrose (Glutose 15) 0 gm PO ONCE PRN; Protocol PRN Reason: Hypoglycemia Protocol Donepezil HCl (Aricept) 10 mg PO HS [facility] Last Admin: 04/23/17 21:42 Dose: 10 mg Ergocalciferol (Drisdol 50,000 Intl Units Cap) 1 cap PO QWK [facility] Glucagon (Glucagen Diagnostic Kit) 0 mg IM STAT PRN; Protocol PRN Reason: Hypoglycemia Protocol Heparin Sodium (Porcine) (Heparin) 5,000 units SC Q8 [facility] Last Admin: 04/24/17 05:22 Dose: 5,000 units Dextrose (Dextrose 5% In Water 1000 Ml) 1,000 mls @ 0 mls/hr IV .Q0M PRN; Protocol; Per Protocol PRN Reason: Hypoglycemia Protocol Ibuprofen (Motrin Tab) 400 mg PO Q6H PRN PRN Reason: Pain, moderate (4-7) Last Admin: 04/24/17 02:51 Dose: 400 mg Insulin Human Regular (Novolin R) 0 unit SC ACHS [facility] PRN Reason: Protocol Last Admin: 04/24/17 08:38 Dose: Not Given Lisinopril (Zestril) 20 mg PO DAILY [facility] Last Admin: 04/24/17 10:16 Dose: 20 mg Ondansetron HCl (Zofran Inj) 4 mg IVP Q6 PRN PRN Reason: Nausea/Vomiting Last Admin: 04/24/17 06:34 Dose: 4 mg Pantoprazole Sodium (Protonix Ec Tab) 40 mg PO DAILY [facility] Last Admin: 04/24/17 10:16 Dose: 40 mg Pneumococcal Polyvalent Vaccine (Pneumovax 23 Vaccine) 0.5 ml IM .ONCE ONE Stop: 04/24/17 14:01 Rosuvastatin Calcium (Crestor) 10 mg PO [facility] Last Admin: 04/23/17 21:42 Dose: 10 mg Physical Exam - Constitutional Appears: Non-toxic, No Acute Distress - Head Exam Head Exam: ATRAUMATIC, NORMAL INSPECTION, NORMOCEPHALIC - Eye Exam Eye Exam: EOMI, Normal appearance, PERRL Pupil Exam: PERRL - ENT Exam ENT Exam: Mucous Membranes Moist, Normal Exam - Neck Exam Neck exam: Positive for: Normal Inspection - Respiratory Exam Respiratory Exam: Clear to Auscultation Bilateral, NORMAL BREATHING PATTERN - Cardiovascular Exam Cardiovascular Exam: REGULAR RHYTHM - GI/Abdominal Exam GI & Abdominal Exam: Normal Bowel Sounds, Soft. absent: Distended, Guarding, Organomegaly, Tenderness - Rectal Exam Rectal Exam: Deferred - Extremities Exam Extremities exam: Positive for: normal inspection - Back Exam Back exam: NORMAL INSPECTION - Neurological Exam Neurological exam: Alert, Oriented x3 - Psychiatric Exam Psychiatric exam: Normal Affect, Normal Mood - Skin Skin Exam: Dry, Intact, Normal Color, Warm Results - Vital Signs Recent Vital Signs: Last Vital Signs Temp 97.7 F 04/24/17 07:00 Pulse 51 L 04/24/17 07:00 Resp 20 04/24/17 07:00 BP 147/76 04/24/17 07:00 Pulse Ox 100 04/24/17 07:00 - Labs Result Diagrams: 04/23/17 10:05 04/23/17 10:05 Labs: Laboratory Results - last 24 hr 04/23/17 04/23/17 04/23/17 10:05 10:05 12:20 ESR PT 13.0 H INR 1.1 APTT 31 D-Dimer, Quantitative < 200 Sodium 135 Potassium 3.8 Chloride 99 Carbon Dioxide 24 Anion Gap 16 BUN 15 Creatinine 0.6 L Est GFR ( Amer) > 60 Est GFR (Non-Af Amer) > 60 POC Glucose (mg/dL) Random Glucose 60 L Hemoglobin A1c 7.4 H Calcium 9.3 Total Bilirubin 0.8 AST 29 ALT 33 Alkaline Phosphatase 43 Total Creatine Kinase CK-MB (Mass) Troponin I < 0.0120 C-React Prot High Sens NT-Pro-B Natriuret Pep 31.1 Total Protein 9.0 H Albumin 4.6 Globulin 4.4 H Albumin/Globulin Ratio 1.0 Triglycerides Cholesterol LDL Cholesterol Direct HDL Cholesterol Lipase 56 Urine Color Urine Clarity Urine pH Ur Specific [place] Urine Protein Urine Glucose (UA) Urine Ketones Urine Blood Urine Nitrate Urine Bilirubin Urine Urobilinogen Ur Leukocyte Esterase Urine WBC (Auto) Urine RBC (Auto) Ur Squamous Epith Cells Ur Transition Epith Cell Urine Bacteria Influenza Typ A,B (EIA) 04/23/17 04/23/17 04/23/17 12:30 16:12 16:30 ESR PT INR APTT D-Dimer, Quantitative Sodium Potassium Chloride Carbon Dioxide Anion Gap BUN Creatinine Est GFR ( Amer) Est GFR (Non-Af Amer) POC Glucose (mg/dL) 164 H Random Glucose Hemoglobin A1c Calcium Total Bilirubin AST ALT Alkaline Phosphatase Total Creatine Kinase 44 CK-MB (Mass) 0.74 Troponin I < 0.0120 C-React Prot High Sens NT-Pro-B Natriuret Pep Total Protein Albumin Globulin Albumin/Globulin Ratio Triglycerides Cholesterol LDL Cholesterol Direct HDL Cholesterol Lipase Urine Color Urine Clarity Urine pH Ur Specific [place] Urine Protein Urine Glucose (UA) Urine Ketones Urine Blood Urine Nitrate Urine Bilirubin Urine Urobilinogen Ur Leukocyte Esterase Urine WBC (Auto) Urine RBC (Auto) Ur Squamous Epith Cells Ur Transition Epith Cell Urine Bacteria Influenza Typ A,B (EIA) Negative for flu a/b 04/23/17 04/23/17 04/23/17 21:09 22:08 22:08 ESR PT INR APTT D-Dimer, Quantitative Sodium Potassium Chloride Carbon Dioxide Anion Gap BUN Creatinine Est GFR ( Amer) Est GFR (Non-Af Amer) POC Glucose (mg/dL) 126 H Random Glucose Hemoglobin A1c Calcium Total Bilirubin AST ALT Alkaline Phosphatase Total Creatine Kinase 47 CK-MB (Mass) 0.70 Troponin I < 0.0120 C-React Prot High Sens NT-Pro-B Natriuret Pep Total Protein Albumin Globulin Albumin/Globulin Ratio Triglycerides Cholesterol LDL Cholesterol Direct HDL Cholesterol Lipase Urine Color Yellow Urine Clarity Hazy Urine pH 6.0 Ur Specific [place] 1.021 Urine Protein Negative Urine Glucose (UA) Normal Urine Ketones Negative Urine Blood Negative Urine Nitrate Positive H Urine Bilirubin Negative Urine Urobilinogen 4.0 H Ur Leukocyte Esterase 3+ H Urine WBC (Auto) 83 H Urine RBC (Auto) 1 Ur Squamous Epith Cells 5 Ur Transition Epith Cell 1 Urine Bacteria Many H Influenza Typ A,B (EIA) 04/24/17 04/24/17 04/24/17 06:13 07:00 07:00 ESR 21 H PT INR APTT D-Dimer, Quantitative Sodium Potassium Chloride Carbon Dioxide Anion Gap BUN Creatinine Est GFR ( Amer) Est GFR (Non-Af Amer) POC Glucose (mg/dL) 147 H Random Glucose Hemoglobin A1c Calcium Total Bilirubin AST ALT Alkaline Phosphatase Total Creatine Kinase CK-MB (Mass) Troponin I C-React Prot High Sens NT-Pro-B Natriuret Pep Total Protein Albumin Globulin Albumin/Globulin Ratio Triglycerides 229 H D Cholesterol 181 LDL Cholesterol Direct 118 HDL Cholesterol 42 Lipase Urine Color Urine Clarity Urine pH Ur Specific [place] Urine Protein Urine Glucose (UA) Urine Ketones Urine Blood Urine Nitrate Urine Bilirubin Urine Urobilinogen Ur Leukocyte Esterase Urine WBC (Auto) Urine RBC (Auto) Ur Squamous Epith Cells Ur Transition Epith Cell Urine Bacteria Influenza Typ A,B (EIA) 04/24/17 07:00 ESR PT INR APTT D-Dimer, Quantitative Sodium Potassium Chloride Carbon Dioxide Anion Gap BUN Creatinine Est GFR ( Amer) Est GFR (Non-Af Amer) POC Glucose (mg/dL) Random Glucose Hemoglobin A1c Calcium Total Bilirubin AST ALT Alkaline Phosphatase Total Creatine Kinase CK-MB (Mass) Troponin I C-React Prot High Sens 0.77 L NT-Pro-B Natriuret Pep Total Protein Albumin Globulin Albumin/Globulin Ratio Triglycerides Cholesterol LDL Cholesterol Direct HDL Cholesterol Lipase Urine Color Urine Clarity Urine pH Ur Specific [place] Urine Protein Urine Glucose (UA) Urine Ketones Urine Blood Urine Nitrate Urine Bilirubin Urine Urobilinogen Ur Leukocyte Esterase Urine WBC (Auto) Urine RBC (Auto) Ur Squamous Epith Cells Ur Transition Epith Cell Urine Bacteria Influenza Typ A,B (EIA) Assessment & Plan - Assessment and Plan (Free Text) Assessment: This is a 76yF presenting with complaints of dizziness, chest pain and vomiting. 1. Vertigo 2. Vomiting-resolved 3. Chest pain Plan: -Continue supportive care with treatment for vertigo -Pt denies any abdominal pain, nausea or vomiting -Pt's episode of vomiting can be associated with vertigo like symptoms that she experienced -No signs of infectious etiology for symptoms which have no resolved -Tolerating diet, advance to heart healthy -No plan for any endoscopic evaluation at this time -Cardiac workup per cardiology -Pt will need outpt colonoscopy CRC screening -Discussed with primary team -Please call with any questions or concerns <Kevin Sanders - Last Filed: 04/24/17 14:50> Meds - Medications Medications: Current Medications Dextrose (Dextrose 50% Inj) 0 ml IV STAT PRN; Protocol PRN Reason: Hypoglycemia Protocol Dextrose (Glutose 15) 0 gm PO ONCE PRN; Protocol PRN Reason: Hypoglycemia Protocol Donepezil HCl (Aricept) 10 mg PO HS [facility] Last Admin: 04/23/17 21:42 Dose: 10 mg Ergocalciferol (Drisdol 50,000 Intl Units Cap) 1 cap PO QWK [facility] Glucagon (Glucagen Diagnostic Kit) 0 mg IM STAT PRN; Protocol PRN Reason: Hypoglycemia Protocol Heparin Sodium (Porcine) (Heparin) 5,000 units SC Q8 [facility] Last Admin: 04/24/17 13:33 Dose: 5,000 units Dextrose (Dextrose 5% In Water 1000 Ml) 1,000 mls @ 0 mls/hr IV .Q0M PRN; Protocol; Per Protocol PRN Reason: Hypoglycemia Protocol Ibuprofen (Motrin Tab) 400 mg PO Q6H PRN PRN Reason: Pain, moderate (4-7) Last Admin: 04/24/17 02:51 Dose: 400 mg Insulin Human Regular (Novolin R) 0 unit SC ACHS [facility] PRN Reason: Protocol Last Admin: 04/24/17 12:30 Dose: Not Given Lisinopril (Zestril) 20 mg PO DAILY [facility] Last Admin: 04/24/17 10:16 Dose: 20 mg Meclizine HCl (Antivert) 12.5 mg PO TID [facility] Ondansetron HCl (Zofran Inj) 4 mg IVP Q6 PRN PRN Reason: Nausea/Vomiting Last Admin: 04/24/17 06:34 Dose: 4 mg Pantoprazole Sodium (Protonix Ec Tab) 40 mg PO DAILY [facility] Last Admin: 04/24/17 10:16 Dose: 40 mg Rosuvastatin Calcium (Crestor) 10 mg PO HS [facility] Last Admin: 04/23/17 21:42 Dose: 10 mg Results - Vital Signs Recent Vital Signs: Last Vital Signs Temp 98 F 04/24/17 13:17 Pulse 65 04/24/17 13:17 Resp 20 04/24/17 13:17 BP 130/75 04/24/17 13:17 Pulse Ox 100 04/24/17 07:00 - Labs Result Diagrams: 04/24/17 11:44 04/24/17 10:16 Labs: Laboratory Results - last 24 hr 04/23/17 04/23/17 04/23/17 16:12 16:30 21:09 WBC RBC Hgb Hct MCV MCH MCHC RDW Plt Count MPV Neut % (Auto) Lymph % (Auto) [place] % (Auto) Eos % (Auto) Baso % (Auto) Neut # Lymph # [place] # Eos # Baso # ESR Sodium Potassium Chloride Carbon Dioxide Anion Gap BUN Creatinine Est GFR ( Amer) Est GFR (Non-Af Amer) POC Glucose (mg/dL) 164 H 126 H Random Glucose Calcium Total Bilirubin AST ALT Alkaline Phosphatase Total Creatine Kinase 44 CK-MB (Mass) 0.74 Troponin I < 0.0120 C-React Prot High Sens Total Protein Albumin Globulin Albumin/Globulin Ratio Triglycerides Cholesterol LDL Cholesterol Direct HDL Cholesterol Urine Color Urine Clarity Urine pH Ur Specific [place] Urine Protein Urine Glucose (UA) Urine Ketones Urine Blood Urine Nitrate Urine Bilirubin Urine Urobilinogen Ur Leukocyte Esterase Urine WBC (Auto) Urine RBC (Auto) Ur Squamous Epith Cells Ur Transition Epith Cell Urine Bacteria 04/23/17 04/23/17 04/24/17 22:08 22:08 06:13 WBC RBC Hgb Hct MCV MCH MCHC RDW Plt Count MPV Neut % (Auto) Lymph % (Auto) [place] % (Auto) Eos % (Auto) Baso % (Auto) Neut # Lymph # [place] # Eos # Baso # ESR Sodium Potassium Chloride Carbon Dioxide Anion Gap BUN Creatinine Est GFR ( Amer) Est GFR (Non-Af Amer) POC Glucose (mg/dL) 147 H Random Glucose Calcium Total Bilirubin AST ALT Alkaline Phosphatase Total Creatine Kinase 47 CK-MB (Mass) 0.70 Troponin I < 0.0120 C-React Prot High Sens Total Protein Albumin Globulin Albumin/Globulin Ratio Triglycerides Cholesterol LDL Cholesterol Direct HDL Cholesterol Urine Color Yellow Urine Clarity Hazy Urine pH 6.0 Ur Specific [place] 1.021 Urine Protein Negative Urine Glucose (UA) Normal Urine Ketones Negative Urine Blood Negative Urine Nitrate Positive H Urine Bilirubin Negative Urine Urobilinogen 4.0 H Ur Leukocyte Esterase 3+ H Urine WBC (Auto) 83 H Urine RBC (Auto) 1 Ur Squamous Epith Cells 5 Ur Transition Epith Cell 1 Urine Bacteria Many H 04/24/17 04/24/17 04/24/17 07:00 07:00 07:00 WBC 5.5 RBC 4.01 Hgb 12.0 Hct 35.1 MCV 87.5 MCH 29.8 MCHC 34.1 RDW 13.2 Plt Count 170 MPV 11.0 Neut % (Auto) 52.4 Lymph % (Auto) 39.8 [place] % (Auto) 5.0 Eos % (Auto) 2.0 Baso % (Auto) 0.8 Neut # 2.9 Lymph # 2.2 [place] # 0.3 Eos # 0.1 Baso # 0.0 ESR 21 H Sodium Potassium Chloride Carbon Dioxide Anion Gap BUN Creatinine Est GFR ( Amer) Est GFR (Non-Af Amer) POC Glucose (mg/dL) Random Glucose Calcium Total Bilirubin AST ALT Alkaline Phosphatase Total Creatine Kinase CK-MB (Mass) Troponin I C-React Prot High Sens 0.77 L Total Protein Albumin Globulin Albumin/Globulin Ratio Triglycerides 229 H D Cholesterol 181 LDL Cholesterol Direct 118 HDL Cholesterol 42 Urine Color Urine Clarity Urine pH Ur Specific [place] Urine Protein Urine Glucose (UA) Urine Ketones Urine Blood Urine Nitrate Urine Bilirubin Urine Urobilinogen Ur Leukocyte Esterase Urine WBC (Auto) Urine RBC (Auto) Ur Squamous Epith Cells Ur Transition Epith Cell Urine Bacteria 04/24/17 04/24/17 04/24/17 10:16 11:44 11:54 WBC 5.5 RBC 4.12 Hgb 12.3 Hct 35.8 MCV 87.1 MCH 29.9 MCHC 34.4 RDW 13.3 Plt Count 170 MPV 10.1 Neut % (Auto) 53.5 Lymph % (Auto) 39.6 [place] % (Auto) 4.5 Eos % (Auto) 1.7 Baso % (Auto) 0.7 Neut # 3.0 Lymph # 2.2 [place] # 0.3 Eos # 0.1 Baso # 0.0 ESR Sodium 132 Potassium 3.8 Chloride 99 Carbon Dioxide 24 Anion Gap 13 BUN 17 Creatinine 0.7 Est GFR ( Amer) > 60 Est GFR (Non-Af Amer) > 60 POC Glucose (mg/dL) 116 H Random Glucose 134 H Calcium 9.0 Total Bilirubin 0.4 AST 27 ALT 29 Alkaline Phosphatase 51 Total Creatine Kinase CK-MB (Mass) Troponin I C-React Prot High Sens Total Protein 7.8 Albumin 4.0 Globulin 3.8 Albumin/Globulin Ratio 1.0 Triglycerides Cholesterol LDL Cholesterol Direct HDL Cholesterol Urine Color Urine Clarity Urine pH Ur Specific [place] Urine Protein Urine Glucose (UA) Urine Ketones Urine Blood Urine Nitrate Urine Bilirubin Urine Urobilinogen Ur Leukocyte Esterase Urine WBC (Auto) Urine RBC (Auto) Ur Squamous Epith Cells Ur Transition Epith Cell Urine Bacteria Attending/Attestation - Attestation I have personally seen and examined this patient.: Yes I have fully participated in the care of the patient.: Yes I have reviewed all pertinent clinical information: Yes Notes (Text): 04/24/17 14:47 76 year old female admitted with chest pain, we are consulted for vomiting. 1. Nausea and vomiting 2. Vertigo Plan: -patient had an isolated episode of N/V at 5 am after going to the bathroom, the episode was preceded by vertigo, which appears to be the cause -she doesn't have any other associated GI symptoms and is eating breakfast without difficulty this morning -would recommend evaluation for vertigo per primary as seems appropriate -another possibility is that she could have had a vasovagal episode if straining in the bathroom, although she didn't fully lose consciousness -no further GI eval or rx at this time -regular diet -supportive measures -will sign off at this time
[2017-04-24 10:55] LABS: ALKALINE PHOSPHATASE 51 U/L (38-126); ALT/SGPT 29 U/L (9-52); AST/SGOT 27 U/L (14-36); BILIRUBIN,TOTAL 0.4 mg/dL (0.2-1.3); BLOOD UREA NITROGEN 17 mg/dL (7-17); CARBON DIOXIDE 24 mmol/L (22-30); CHLORIDE 99 mmol/L (98-107); GFR AFRICAN-AMERICAN > 60; GLUCOSE,RANDOM 134 mg/dL (65-105); POTASSIUM 3.8 mmol/L (3.6-5.2); SODIUM 132 mmol/L (132-148); TOTAL PROTEIN 7.8 g/dL (6.3-8.3)
[2017-04-24 11:52] LABS: BASO % 0.7 % (0.0-2.0); EOS # 0.1 K/uL (0.0-0.7); EOS % 1.7 % (0.0-4.0); HEMATOCRIT 35.8 % (34.0-47.0); LYMPH # 2.2 K/uL (1.0-4.3); LYMPH % 39.6 % (20.0-40.0); MEAN CELL VOLUME 87.1 fL (81.0-99.0); MEAN CORPUSCULAR HEMOGLOBIN 29.9 pg (27.0-31.0); MEAN CORPUSCULAR HGB CONC 34.4 g/dL (33.0-37.0); MEAN PLATELET VOLUME 10.1 fL (7.2-11.7); MONO # 0.3 K/uL (0.0-0.8); MONO % 4.5 % (0.0-10.0); NRBC % 0.1 % (0.0-2.0); RED CELL DISTRIBUTION WIDTH 13.3 % (11.5-14.5); WHITE BLOOD COUNT 5.5 K/uL (4.8-10.8)
--- NOTE | 2017-04-24 12:55 | CP.PCM.PN ---
Addendum entered and electronically signed by Michelle Rodrigues DO 04/24/17 15: 20: Orthostatics: supine 130/75, sitting 122/64, standing 113/70 EChO - LV function within normal range; grade 1 abnormal relaxation pattern; LA borderline dilated; mild tricuspid regurg' aortic valve mildly sclerotic ( please see full report) F/U cardiology reassessment Original Note: <Michelle Rodrigues - Last Filed: 04/24/17 12:45> Subjective - Date & Time of Evaluation Date of Evaluation: 04/24/17 Time of Evaluation: 08:10 - Subjective Subjective: PGY3 Medicine Note - Dr. Lozada's service: Patient seen and examined at bedside this AM. Patient reports waking up at 5am to have a bowel movement, feeling lightheaded after and vomiting. She says that after she vomited, she felt much better. Patient said she gets this dizziness and chest pain on and off for the past few years. Patient denied chest pain, sOB, abdominal pain, nausea at that time. Patient later seen with Dr. Lozada. At this time, patient reports feeling dizzy again and having left sided chest pain under her breast, more so with palpation. Objective - Vital Signs/Intake and Output Vital Signs (last 24 hours): Temp Pulse Resp BP Pulse Ox 97.7 F 51 L 20 147/76 100 04/24/17 07:00 04/24/17 07:00 04/24/17 07:00 04/24/17 07:00 04/24/17 07:00 Intake and Output: 04/24/17 04/24/17 06:59 18:59 Intake Total 240 Balance 240 - Medications Medications: Current Medications Dextrose (Dextrose 50% Inj) 0 ml IV STAT PRN; Protocol PRN Reason: Hypoglycemia Protocol Dextrose (Glutose 15) 0 gm PO ONCE PRN; Protocol PRN Reason: Hypoglycemia Protocol Donepezil HCl (Aricept) 10 mg PO HS [facility] Last Admin: 04/23/17 21:42 Dose: 10 mg Ergocalciferol (Drisdol 50,000 Intl Units Cap) 1 cap PO QWK [facility] Glucagon (Glucagen Diagnostic Kit) 0 mg IM STAT PRN; Protocol PRN Reason: Hypoglycemia Protocol Heparin Sodium (Porcine) (Heparin) 5,000 units SC Q8 [facility] Last Admin: 04/24/17 05:22 Dose: 5,000 units Dextrose (Dextrose 5% In Water 1000 Ml) 1,000 mls @ 0 mls/hr IV .Q0M PRN; Protocol; Per Protocol PRN Reason: Hypoglycemia Protocol Ibuprofen (Motrin Tab) 400 mg PO Q6H PRN PRN Reason: Pain, moderate (4-7) Last Admin: 04/24/17 02:51 Dose: 400 mg Insulin Human Regular (Novolin R) 0 unit SC ACHS [facility] PRN Reason: Protocol Last Admin: 04/24/17 08:38 Dose: Not Given Lisinopril (Zestril) 20 mg PO DAILY [facility] Last Admin: 04/24/17 10:16 Dose: 20 mg Ondansetron HCl (Zofran Inj) 4 mg IVP Q6 PRN PRN Reason: Nausea/Vomiting Last Admin: 04/24/17 06:34 Dose: 4 mg Pantoprazole Sodium (Protonix Ec Tab) 40 mg PO DAILY [facility] Last Admin: 04/24/17 10:16 Dose: 40 mg Pneumococcal Polyvalent Vaccine (Pneumovax 23 Vaccine) 0.5 ml IM .ONCE ONE Stop: 04/24/17 14:01 Rosuvastatin Calcium (Crestor) 10 mg PO HS [facility] Last Admin: 04/23/17 21:42 Dose: 10 mg - Labs Labs: 04/24/17 11:44 04/24/17 10:16 PT 13.0 SECONDS (9.7-12.2) H 04/23/17 10:05 INR 1.1 04/23/17 10:05 APTT 31 SECONDS (21-34) 04/23/17 10:05 - Constitutional Appears: Non-toxic, No Acute Distress - Head Exam Head Exam: NORMAL INSPECTION - Eye Exam Eye Exam: EOMI - ENT Exam ENT Exam: Mucous Membranes Moist - Respiratory Exam Respiratory Exam: Chest Wall Tenderness, Clear to Ausculation Bilateral, NORMAL BREATHING PATTERN. absent: Rales, Rhonchi, Wheezes - Cardiovascular Exam Cardiovascular Exam: REGULAR RHYTHM, +S1, +S2. absent: Gallop, Rubs, Murmur - GI/Abdominal Exam GI & Abdominal Exam: Soft, Normal Bowel Sounds. absent: Tenderness - Extremities Exam Extremities Exam: absent: Pedal Edema - Neurological Exam Neurological Exam: Alert, Awake, Oriented x3 - Psychiatric Exam Psychiatric exam: Normal Affect, Normal Mood - Skin Skin Exam: Normal Color, Warm Assessment and Plan - Assessment and Plan (Free Text) Assessment: Chest pain Assessment and Plan: Cardiology consult, Dr Padilla, help apprecaited On telemetry EKG shows t-wave inversions which is a change from prior EKG DEEPIKA negative x 3 BNP 31 (WNL) F/U ECHO report Status: Acute Priority: High Nausea & vomiting Assessment and Plan: GI consult, Dr Shepard, help appreciated Per Dr. Sanders (GI), vomiting likely secondary to dizziness Status: Acute Dizziness Assessment and Plan: Meclizine 12.5mg PO TID F/U Head CT F/U ECHO report F/U orthostatic vital signs F/U PT eval Status: Acute Diabetes Assessment and Plan: HgbA1C 7.4 RISS - medium dose protocol Hypoglycemia protocol Holding home meds Lantus and Metformin for now Status: Chronic Priority: Medium HLD (hyperlipidemia) Assessment and Plan: Contine home med Rosuvastatin 10mg PO HS Tri 229, Chol 181, LDL 118, HDL 42 Status: Chronic Priority: Medium HTN (hypertension) Assessment and Plan: BP well controlled Continue home med Lisinopril 20mg PO QD Status: Chronic Priority: Medium Alzheimers disease Assessment and Plan: Continue home med Aricept 10mg PO HS Status: Acute Prophylactic measure Assessment and Plan: SCDs Protonix 40mg PO QD Heparin 5000u SC Q8H Status: Acute Priority: Low <EvelynederPeytonwilfred - Last Filed: 04/24/17 18:47> Objective - Vital Signs/Intake and Output Vital Signs (last 24 hours): Temp Pulse Resp BP Pulse Ox 97.6 F 65 20 131/77 95 04/24/17 15:15 04/24/17 17:54 04/24/17 15:15 04/24/17 17:54 04/24/17 15:15 Intake and Output: 04/24/17 04/24/17 06:59 18:59 Intake Total 240 Balance 240 - Medications Medications: Current Medications Dextrose (Dextrose 50% Inj) 0 ml IV STAT PRN; Protocol PRN Reason: Hypoglycemia Protocol Dextrose (Glutose 15) 0 gm PO ONCE PRN; Protocol PRN Reason: Hypoglycemia Protocol Donepezil HCl (Aricept) 10 mg PO HS [facility] Last Admin: 04/23/17 21:42 Dose: 10 mg Ergocalciferol (Drisdol 50,000 Intl Units Cap) 1 cap PO QWK [facility] Glucagon (Glucagen Diagnostic Kit) 0 mg IM STAT PRN; Protocol PRN Reason: Hypoglycemia Protocol Heparin Sodium (Porcine) (Heparin) 5,000 units SC Q8 [facility] Last Admin: 04/24/17 13:33 Dose: 5,000 units Dextrose (Dextrose 5% In Water 1000 Ml) 1,000 mls @ 0 mls/hr IV .Q0M PRN; Protocol; Per Protocol PRN Reason: Hypoglycemia Protocol Ceftriaxone Sodium 1 gm/ (Sodium Chloride) 100 mls @ 100 mls/hr IVPB DAILY [facility] Ibuprofen (Motrin Tab) 400 mg PO Q6H PRN PRN Reason: Pain, moderate (4-7) Last Admin: 04/24/17 02:51 Dose: 400 mg Insulin Human Regular (Novolin R) 0 unit SC ACHS [facility] PRN Reason: Protocol Last Admin: 04/24/17 17:52 Dose: 2 unit Lisinopril (Zestril) 20 mg PO DAILY [facility] Last Admin: 04/24/17 10:16 Dose: 20 mg Meclizine HCl (Antivert) 12.5 mg PO TID [facility] Last Admin: 04/24/17 17:52 Dose: 12.5 mg Ondansetron HCl (Zofran Inj) 4 mg IVP Q6 PRN PRN Reason: Nausea/Vomiting Last Admin: 04/24/17 06:34 Dose: 4 mg Pantoprazole Sodium (Protonix Ec Tab) 40 mg PO DAILY [facility] Last Admin: 04/24/17 10:16 Dose: 40 mg Rosuvastatin Calcium (Crestor) 10 mg PO HS [facility] Last Admin: 04/23/17 21:42 Dose: 10 mg - Labs Labs: 04/24/17 11:44 PT 13.0 SECONDS (9.7-12.2) H 04/23/17 10:05 INR 1.1 04/23/17 10:05 APTT 31 SECONDS (21-34) 04/23/17 10:05 Attending/Attestation - Attestation I have personally seen and examined this patient.: Yes I have fully participated in the care of the patient.: Yes I have reviewed all pertinent clinical information, including history, physical exam and plan: Yes
[2017-04-24] MEDS ORDERED: Pneumococcal 23-Valent Vaccine IM ONE (14:00)
[2017-04-24] MEDS ORDERED: Influenza Vaccine 60 mcg/0.5 mL SYR (4YR UP) IM ONE (14:00)
--- NOTE | 2017-04-24 14:22 | CARD ---
APPROVED REPORT EXAM: Two-dimensional and M-mode echocardiogram with Doppler and color Doppler. Other Information Quality : GoodRhythm : INDICATION Dizziness and Vertigo Chest Pain RISK FACTORS Hypertension Hyperlipidemia Diabetes 2D DIMENSIONS IVSd0.7 (0.7-1.1cm)LVDd4.7 (3.9-5.9cm) PWd0.8 (0.7-1.1cm)LVDs2.6 (2.5-4.0cm) FS (%) 44.7 %LVEF (%)70.0 (>50%) M-Mode DIMENSIONS Left Atrium (MM)4.02 (2.5-4.0cm)Aortic Root2.70 (2.2-3.7cm) Aortic Cusp Exc.1.60 (1.5-2.0cm) Mitral Valve MV E Pnmsvbpj42.6cm/sMV A Hqvaaiwt44.3cm/sE/A ratio0.8 TDI E/Lateral E'0.0E/Medial E'0.0 Tricuspid Valve TR Peak Wubdltea383fm/sTR Peak Gr.51esHpVZXE45waHr LEFT VENTRICLE The left ventricle is normal size. There is normal left ventricular wall thickness. The left ventricular function is normal. The left ventricular ejection fraction is within the normal range. No regional wall motion abnormalities noted. Transmitral Doppler flow pattern is Grade I-abnormal relaxation pattern. No left ventricle thrombus noted on this study. There is no ventricular septal defect visualized. There is no left ventricular aneurysm. There is no mass noted in the left ventricle. RIGHT VENTRICLE The right ventricle is normal size. There is normal right ventricular wall thickness. The right ventricular systolic function is normal. ATRIA The left atrium is borderline dilated. The right atrium size is normal. The interatrial septum is intact with no evidence for an atrial septal defect. AORTIC VALVE The aortic valve is mildly sclerotic. No aortic regurgitation is present. There is no aortic valvular stenosis. There is no aortic valvular vegetation. MITRAL VALVE The mitral valve is normal in structure. There is no evidence of mitral valve prolapse. There is no mitral valve stenosis. Mitral regurgitation is trace. TRICUSPID VALVE The tricuspid valve is normal in structure. There is mild tricuspid regurgitation. There is no tricuspid valve prolapse or vegetation. There is no tricuspid valve stenosis. PULMONIC VALVE The pulmonary valve is normal in structure. There is trace pulmonic valvular regurgitation. There is no pulmonic valvular stenosis. GREAT VESSELS The aortic root is normal in size. The ascending aorta is normal in size. The IVC is normal in size and collapses >50% with inspiration. PERICARDIAL EFFUSION There is no pericardial effusion. There is no pleural effusion. <Conclusion> The left ventricular ejection fraction is within the normal range. Transmitral Doppler flow pattern is Grade I-abnormal relaxation pattern. The left atrium is borderline dilated. The aortic valve is mildly sclerotic. There is mild tricuspid regurgitation.
--- NOTE | 2017-04-24 17:42 | CT ---
PROCEDURE: CT HEAD WITHOUT CONTRAST. HISTORY: dizziness COMPARISON: None available. TECHNIQUE: Axial computed tomography images were obtained through the head/brain without intravenous contrast. Radiation dose: Total exam DLP = 774 mGy-cm. This CT exam was performed using one or more of the following dose reduction techniques: Automated exposure control, adjustment of the mA and/or kV according to patient size, and/or use of iterative reconstruction technique. FINDINGS: HEMORRHAGE: No intracranial hemorrhage. BRAIN: No mass effect or edema. Scattered focal lucencies in the subcortical and periventricular white matter suggestive for chronic microvascular ischemic change. Bilateral basal ganglia calcifications. Mild cerebellar atrophy. VENTRICLES: Unremarkable. No hydrocephalus. CALVARIUM: Unremarkable. PARANASAL SINUSES: Unremarkable as visualized. No significant inflammatory changes. MASTOID AIR CELLS: Unremarkable as visualized. No inflammatory changes. OTHER FINDINGS: None. IMPRESSION: No acute intracranial abnormality. Chronic microvascular ischemic change. Bilateral basal ganglia calcifications. Mild cerebellar atrophy. If focal neurologic deficit persists, consider MRI.
--- NOTE | 2017-04-24 22:51 | CP.PCM.PN ---
Subjective - Date & Time of Evaluation Date of Evaluation: 04/24/17 Time of Evaluation: 22:50 - Subjective Subjective: recurrent chest pains mildly orthostatic echo reviewed Objective - Vital Signs/Intake and Output Vital Signs (last 24 hours): Temp Pulse Resp BP Pulse Ox 97.6 F 65 20 131/77 95 04/24/17 15:15 04/24/17 17:54 04/24/17 15:15 04/24/17 17:54 04/24/17 15:15 - Medications Medications: Current Medications Dextrose (Dextrose 50% Inj) 0 ml IV STAT PRN; Protocol PRN Reason: Hypoglycemia Protocol Dextrose (Glutose 15) 0 gm PO ONCE PRN; Protocol PRN Reason: Hypoglycemia Protocol Donepezil HCl (Aricept) 10 mg PO HS [facility] Last Admin: 04/24/17 22:09 Dose: 10 mg Ergocalciferol (Drisdol 50,000 Intl Units Cap) 1 cap PO QWK [facility] Glucagon (Glucagen Diagnostic Kit) 0 mg IM STAT PRN; Protocol PRN Reason: Hypoglycemia Protocol Heparin Sodium (Porcine) (Heparin) 5,000 units SC Q8 [facility] Last Admin: 04/24/17 22:09 Dose: 5,000 units Dextrose (Dextrose 5% In Water 1000 Ml) 1,000 mls @ 0 mls/hr IV .Q0M PRN; Protocol; Per Protocol PRN Reason: Hypoglycemia Protocol Ceftriaxone Sodium (Rocephin Iv 1 Gm Duplex) 50 mls @ 100 mls/hr IVPB Q24H [facility] Ibuprofen (Motrin Tab) 400 mg PO Q6H PRN PRN Reason: Pain, moderate (4-7) Last Admin: 04/24/17 02:51 Dose: 400 mg Insulin Human Regular (Novolin R) 0 unit SC ACHS [facility] PRN Reason: Protocol Last Admin: 04/24/17 22:19 Dose: Not Given Lisinopril (Zestril) 20 mg PO DAILY [facility] Last Admin: 04/24/17 10:16 Dose: 20 mg Meclizine HCl (Antivert) 12.5 mg PO TID [facility] Last Admin: 04/24/17 17:52 Dose: 12.5 mg Ondansetron HCl (Zofran Inj) 4 mg IVP Q6 PRN PRN Reason: Nausea/Vomiting Last Admin: 04/24/17 06:34 Dose: 4 mg Pantoprazole Sodium (Protonix Ec Tab) 40 mg PO DAILY [facility] Last Admin: 04/24/17 10:16 Dose: 40 mg Rosuvastatin Calcium (Crestor) 10 mg PO HS [facility] Last Admin: 04/24/17 22:09 Dose: 10 mg - Labs Labs: 04/24/17 11:44 04/24/17 10:16 PT 13.0 SECONDS (9.7-12.2) H 04/23/17 10:05 INR 1.1 04/23/17 10:05 APTT 31 SECONDS (21-34) 04/23/17 10:05 - Constitutional Appears: Well - Head Exam Head Exam: ATRAUMATIC, NORMAL INSPECTION, NORMOCEPHALIC - Eye Exam Eye Exam: EOMI, Normal appearance, PERRL Pupil Exam: NORMAL ACCOMODATION, PERRL - ENT Exam ENT Exam: Mucous Membranes Moist, Normal Exam - Neck Exam Neck Exam: Full ROM, Normal Inspection. absent: Lymphadenopathy - Respiratory Exam Respiratory Exam: Clear to Ausculation Bilateral, NORMAL BREATHING PATTERN - Cardiovascular Exam Cardiovascular Exam: REGULAR RHYTHM, +S1, +S2, Murmur - GI/Abdominal Exam GI & Abdominal Exam: Soft, Normal Bowel Sounds. absent: Tenderness - Extremities Exam Extremities Exam: Full ROM, Normal Capillary Refill, Normal Inspection. absent : Joint Swelling, Pedal Edema - Back Exam Back Exam: NORMAL INSPECTION - Neurological Exam Neurological Exam: Alert, Awake, CN II-XII Intact, Oriented x3 - Psychiatric Exam Psychiatric exam: Normal Affect, Normal Mood - Skin Skin Exam: Dry, Intact, Normal Color, Warm Assessment and Plan (1) Chest pain Assessment & Plan: plan for stress test on wednesday Status: Acute (2) Sinus bradycardia Status: Acute (3) Diabetes Status: Chronic (4) HLD (hyperlipidemia) Assessment & Plan: crestor Status: Chronic (5) HTN (hypertension) Assessment & Plan: cont acei Status: Chronic
[2017-04-25] MEDS: (Novolin R) Insulin Human Regular 100 units/ml vial SC SCH ×4 (07:24→21:39)
[2017-04-25 07:45] LABS: BASO % 0.6 % (0.0-2.0); EOS # 0.2 K/uL (0.0-0.7); EOS % 2.5 % (0.0-4.0); LYMPH # 2.6 K/uL (1.0-4.3); LYMPH % 43.1 % (20.0-40.0); MEAN CELL VOLUME 87.4 fL (81.0-99.0); MEAN CORPUSCULAR HEMOGLOBIN 30.2 pg (27.0-31.0); MEAN CORPUSCULAR HGB CONC 34.6 g/dL (33.0-37.0); MEAN PLATELET VOLUME 9.6 fL (7.2-11.7); MONO # 0.3 K/uL (0.0-0.8); NRBC % 0.1 % (0.0-2.0); RED CELL DISTRIBUTION WIDTH 13.2 % (11.5-14.5); WHITE BLOOD COUNT 6.1 K/uL (4.8-10.8)
[2017-04-25 08:18] LABS: ALB/GLOB RATIO 1.4 (1.0-2.1); ALKALINE PHOSPHATASE 47 U/L (38-126); ALT/SGPT 27 U/L (9-52); AST/SGOT 18 U/L (14-36); BILIRUBIN,TOTAL 0.6 mg/dL (0.2-1.3); BLOOD UREA NITROGEN 18 mg/dL (7-17); CALCIUM 8.6 mg/dl (8.6-10.4); CARBON DIOXIDE 25 mmol/L (22-30); CHLORIDE 102 mmol/L (98-107); GFR AFRICAN-AMERICAN > 60; GLUCOSE,RANDOM 115 mg/dL (65-105); POTASSIUM 3.7 mmol/L (3.6-5.2); SODIUM 135 mmol/L (132-148); TOTAL PROTEIN 6.5 g/dL (6.3-8.3)
[2017-04-25 08:30] LABS: THYROID STIMULATING HORMONE 2.38 mIU/L (0.46-4.68)
--- NOTE | 2017-04-25 09:01 | CP.PCM.PN ---
<Michelle Rodrigues H - Last Filed: 04/25/17 08:58> Subjective - Date & Time of Evaluation Date of Evaluation: 04/25/17 Time of Evaluation: 08:10 - Subjective Subjective: PGY3 Medicine Note - Dr. Lozada's service: Patient seen and examined at bedside this AM. Patient reports slight dizziness and nausea with reproducible left sided chest pain under her breast. Patient also reports abdominal pain but says she does not know where or when she had it. Patient denies fever, chills, SOB. Objective - Vital Signs/Intake and Output Vital Signs (last 24 hours): Temp Pulse Resp BP Pulse Ox 98.2 F 63 20 142/75 95 04/25/17 07:00 04/25/17 07:00 04/25/17 07:00 04/25/17 07:00 04/25/17 07:00 Intake and Output: 04/25/17 04/25/17 06:59 18:59 Intake Total 200 Balance 200 - Medications Medications: Current Medications Dextrose (Dextrose 50% Inj) 0 ml IV STAT PRN; Protocol PRN Reason: Hypoglycemia Protocol Dextrose (Glutose 15) 0 gm PO ONCE PRN; Protocol PRN Reason: Hypoglycemia Protocol Donepezil HCl (Aricept) 10 mg PO HS MINAL Last Admin: 04/24/17 22:09 Dose: 10 mg Ergocalciferol (Drisdol 50,000 Intl Units Cap) 1 cap PO QWK [facility] Glucagon (Glucagen Diagnostic Kit) 0 mg IM STAT PRN; Protocol PRN Reason: Hypoglycemia Protocol Heparin Sodium (Porcine) (Heparin) 5,000 units SC Q8 [facility] Last Admin: 04/25/17 05:13 Dose: 5,000 units Dextrose (Dextrose 5% In Water 1000 Ml) 1,000 mls @ 0 mls/hr IV .Q0M PRN; Protocol; Per Protocol PRN Reason: Hypoglycemia Protocol Ceftriaxone Sodium (Rocephin Iv 1 Gm Duplex) 50 mls @ 100 mls/hr IVPB Q24H [facility] Ibuprofen (Motrin Tab) 400 mg PO Q6H PRN PRN Reason: Pain, moderate (4-7) Last Admin: 04/24/17 02:51 Dose: 400 mg Insulin Human Regular (Novolin R) 0 unit SC ACHS [facility] PRN Reason: Protocol Last Admin: 04/25/17 07:24 Dose: Not Given Lisinopril (Zestril) 20 mg PO DAILY REPLACED BY [facility] Last Admin: 04/24/17 10:16 Dose: 20 mg Meclizine HCl (Antivert) 12.5 mg PO TID REPLACED BY [facility] Last Admin: 04/24/17 17:52 Dose: 12.5 mg Ondansetron HCl (Zofran Inj) 4 mg IVP Q6 PRN PRN Reason: Nausea/Vomiting Last Admin: 04/24/17 06:34 Dose: 4 mg Pantoprazole Sodium (Protonix Ec Tab) 40 mg PO DAILY REPLACED BY [facility] Last Admin: 04/24/17 10:16 Dose: 40 mg Rosuvastatin Calcium (Crestor) 10 mg PO HS REPLACED BY [facility] Last Admin: 04/24/17 22:09 Dose: 10 mg - Labs Labs: 04/25/17 07:35 04/25/17 07:35 PT 13.0 SECONDS (9.7-12.2) H 04/23/17 10:05 INR 1.1 04/23/17 10:05 APTT 31 SECONDS (21-34) 04/23/17 10:05 - Constitutional Appears: Non-toxic, No Acute Distress - Head Exam Head Exam: NORMAL INSPECTION - Eye Exam Eye Exam: EOMI - ENT Exam ENT Exam: Mucous Membranes Moist - Respiratory Exam Respiratory Exam: Chest Wall Tenderness (left sided), Clear to Ausculation Bilateral, NORMAL BREATHING PATTERN. absent: Rales, Rhonchi, Wheezes - Cardiovascular Exam Cardiovascular Exam: REGULAR RHYTHM, +S1, +S2. absent: Gallop, Rubs, Murmur - GI/Abdominal Exam GI & Abdominal Exam: Soft, Normal Bowel Sounds. absent: Tenderness - Extremities Exam Extremities Exam: absent: Pedal Edema - Neurological Exam Neurological Exam: Alert, Awake, Oriented x3 - Psychiatric Exam Psychiatric exam: Normal Affect, Normal Mood - Skin Skin Exam: Normal Color, Warm Assessment and Plan - Assessment and Plan (Free Text) Assessment: Chest pain Assessment and Plan: Cardiology consult, Dr Padilla, help apprecaited On telemetry EKG shows t-wave inversions which is a change from prior EKG DEEPIKA negative x 3 BNP 31 (WNL) ECHO 04/23/17- LV function within normal range; grade 1 abnormal relaxation pattern; LA borderline dilated; mild tricuspid regurgitation aortic valve mildly sclerotic (please see full report) Patient scheduled for stress test with Dr. Padilla on 04/26/17 (help appreciated) - NPO after midnight Status: Acute Priority: High Nausea & vomiting Assessment and Plan: GI consult, Dr Shepard, help appreciated Per Dr. Sanders (GI), vomiting likely secondary to dizziness Status: Acute Dizziness Assessment and Plan: Head CT 04/24/17 - no acute intracranial abnormality; chronic microvascular ischemic change. B/l basal ganglia calcification; mild cerebral atrophy (please see full report) Orthostatics: supine 130/75, sitting 122/64, standing 113/70 ECHO 04/23/17- LV function within normal range; grade 1 abnormal relaxation pattern; LA borderline dilated; mild tricuspid regurgitation aortic valve mildly sclerotic (please see full report) Patient scheduled for stress test with Dr. Padilla on 04/26/17 (help appreciated) - NPO after midnight F/U PT eval Neuro consult - Dr. Choi - f/u recs Vitamin D <12.8 TSH 2.38 F/U RPR Ergocalciferol 10137 PO weekly Meclizine 12.5mg PO TID Status: Acute Diabetes Assessment and Plan: HgbA1C 7.4 RISS - medium dose protocol Hypoglycemia protocol Holding home meds Lantus and Metformin for now Status: Chronic Priority: Medium HLD (hyperlipidemia) Assessment and Plan: Contine home med Rosuvastatin 10mg PO HS Tri 229, Chol 181, LDL 118, HDL 42 Status: Chronic Priority: Medium HTN (hypertension) Assessment and Plan: BP well controlled Continue home med Lisinopril 20mg PO QD Status: Chronic Priority: Medium Alzheimers disease Assessment and Plan: Continue home med Aricept 10mg PO HS Status: Acute Prophylactic measure Assessment and Plan: SCDs Protonix 40mg PO QD Heparin 5000u SC Q8H Status: Acute Priority: Low <Malgorzata Davalos V - Last Filed: 04/25/17 14:48> Objective - Vital Signs/Intake and Output Vital Signs (last 24 hours): Temp Pulse Resp BP Pulse Ox 98.2 F 70 20 142/75 95 04/25/17 07:00 04/25/17 11:02 04/25/17 07:00 04/25/17 07:00 04/25/17 11:02 Intake and Output: 04/25/17 04/25/17 06:59 18:59 Intake Total 200 500 Balance 200 500 - Medications Medications: Current Medications Dextrose (Dextrose 50% Inj) 0 ml IV STAT PRN; Protocol PRN Reason: Hypoglycemia Protocol Dextrose (Glutose 15) 0 gm PO ONCE PRN; Protocol PRN Reason: Hypoglycemia Protocol Donepezil HCl (Aricept) 10 mg PO HS REPLACED BY [facility] Last Admin: 04/24/17 22:09 Dose: 10 mg Ergocalciferol (Drisdol 50,000 Intl Units Cap) 1 cap PO QWK REPLACED BY [facility] Stop: 07/11/17 10:01 Last Admin: 04/25/17 09:17 Dose: 1 cap Glucagon (Glucagen Diagnostic Kit) 0 mg IM STAT PRN; Protocol PRN Reason: Hypoglycemia Protocol Heparin Sodium (Porcine) (Heparin) 5,000 units SC Q8 REPLACED BY [facility] Last Admin: 04/25/17 13:26 Dose: 5,000 units Dextrose (Dextrose 5% In Water 1000 Ml) 1,000 mls @ 0 mls/hr IV .Q0M PRN; Protocol; Per Protocol PRN Reason: Hypoglycemia Protocol Ceftriaxone Sodium (Rocephin Iv 1 Gm Duplex) 50 mls @ 100 mls/hr IVPB Q24H REPLACED BY [facility] Ibuprofen (Motrin Tab) 400 mg PO Q6H PRN PRN Reason: Pain, moderate (4-7) Last Admin: 04/24/17 02:51 Dose: 400 mg Insulin Human Regular (Novolin R) 0 unit SC ACHS REPLACED BY [facility] PRN Reason: Protocol Last Admin: 04/25/17 11:26 Dose: Not Given Lisinopril (Zestril) 20 mg PO DAILY REPLACED BY [facility] Last Admin: 04/25/17 09:17 Dose: 20 mg Meclizine HCl (Antivert) 12.5 mg PO TID REPLACED BY [facility] Last Admin: 04/25/17 13:26 Dose: 12.5 mg Ondansetron HCl (Zofran Inj) 4 mg IVP Q6 PRN PRN Reason: Nausea/Vomiting Last Admin: 04/24/17 06:34 Dose: 4 mg Pantoprazole Sodium (Protonix Ec Tab) 40 mg PO DAILY REPLACED BY [facility] Last Admin: 04/25/17 09:17 Dose: 40 mg Rosuvastatin Calcium (Crestor) 10 mg PO HS REPLACED BY [facility] Last Admin: 04/24/17 22:09 Dose: 10 mg - Labs Labs: 04/25/17 07:35 04/25/17 07:35 PT 13.0 SECONDS (9.7-12.2) H 04/23/17 10:05 INR 1.1 04/23/17 10:05 APTT 31 SECONDS (21-34) 04/23/17 10:05 Attending/Attestation - Attestation I have personally seen and examined this patient.: Yes I have fully participated in the care of the patient.: Yes I have reviewed all pertinent clinical information, including history, physical exam and plan: Yes Notes (Text): Patient seen, examined and case discussed with day-time resident. Patient status changed to inpatient for stress test with cardiology tomorrow. Patient reports she went to the bathroom. Denies dizziness, denies lightheadedness. Reports no diarrhea, denies problem with urinations. Patient denies chest pain with me presently. Denies cough, denies palpitations, denies nausea. on telemetry: heart 65; appears in NSR Awaiting neurology evaluation NPO after midnight for myocardial stress test Assessment/Plan 1) Chest pain Assessment and Plan: * Cardiology consult, Dr Padilla, help apprecaited * On telemetry * EKG shows t-wave inversions which is a change from prior EKG on admission * DEEPIKA negative x 3 * BNP 31 (WNL) * ECHO 04/23/17- LV function within normal range; grade 1 abnormal relaxation pattern; LA borderline dilated; mild tricuspid regurgitation aortic valve mildly sclerotic (please see full report) * Patient scheduled for stress test with Dr. Padilla on 04/26/17 (help appreciated ) - NPO after midnight * Patient status changed to inpatient given stress test tomorrow Status: Acute Priority: High 2) Nausea & vomiting Assessment and Plan: * GI consult, Dr Shepard, help appreciated * Per Dr. Sanders (GI), vomiting likely secondary to dizziness * Signed off 04/24 * Resolved today Status: Acute 3) Dizziness Assessment and Plan: * Head CT 04/24/17 - no acute intracranial abnormality; chronic microvascular ischemic change. B/l basal ganglia calcification; mild cerebral atrophy (please see full report) * Orthostatics: supine 130/75, sitting 122/64, standing 113/70 * ECHO 04/23/17- LV function within normal range; grade 1 abnormal relaxation pattern; LA borderline dilated; mild tricuspid regurgitation aortic valve mildly sclerotic (please see full report) * Patient scheduled for stress test with Dr. Padilla on 04/26/17 (help appreciated ) - NPO after midnight * F/U PT eval * Neuro consult - Dr. Choi -pending * Vitamin D <12.8 * TSH 2.38 * F/U RPR * Ergocalciferol 48859 IU once a week for 8-12 weeks * Meclizine 12.5mg PO TID Status: Acute 4) Diabetes Assessment and Plan: * HgbA1C 7.4 * RISS - medium dose protocol * Hypoglycemia protocol * Holding home meds Lantus and Metformin for now * Lisinopril 20mg PO daily * Aspirin 81mg PO daily * Crestor 10mg POqHS Status: Chronic Priority: Medium 5) HLD (hyperlipidemia) Assessment and Plan: * Continue home med Rosuvastatin 10mg PO HS * Tri 229, Chol 181, LDL 118, HDL 42 Status: Chronic Priority: Medium 6) HTN (hypertension) Assessment and Plan: * BP well controlled * Continue home med Lisinopril 20mg PO QDaily Status: Chronic Priority: Medium 7) Alzheimers disease, mild Assessment and Plan: * Continue home med Aricept 10mg PO HS Status: Acute 8) Vitamin D Deficiency Assessment and Plan: * Vitamin D 50,000 IU once a week for 8-12 weeks Status: Acute 9) Prophylactic measure Assessment and Plan: * SCDs * Protonix 40mg PO QDaily * Heparin 5000u SC [id number] Status: Acute Priority: Low Disposition: * Awaiting neurology eval for dizziness; likely vasovagal and mild orthostatics * changed inpatient status for stress test tomorrow by cardiology
[2017-04-25] MEDS: Pantoprazole 40 mg EC Tab PO SCH (09:17)
[2017-04-25] MEDS ORDERED: Ergocalciferol 50,000 Intl Units Cap PO SCH (10:00)
--- NOTE | 2017-04-25 17:43 | CP.PCM.CON ---
History of Present Illness - History of Present Illness History of Present Illness: Mrs. Herring is a 76-year-old woman with a past medical history of HTN, DM2, HLD , Alzheimer's Disease, who presented to the ED for a 48 hour history of dizziness (she describes as true spinning sensation), vomiting (several times) and chest pain. Today, she continues to feel vertiginous and nauseous despite meclizine. She feels that when she turns to the right it is worse. 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 Review of Systems - Review of Systems All systems: reviewed and no additional remarkable complaints except Past Patient History - Infectious Disease Hx of Infectious Diseases: None - Past Medical History & Family History Past Medical History?: Yes - Past Social History Smoking Status: Never Smoked - CARDIAC Hx Hypercholesterolemia: Yes Hx Hypertension: Yes - PULMONARY Hx Respiratory Disorders: No - NEUROLOGICAL Hx Alzheimer's Disease: Yes (beginning stages) - HEENT Hx HEENT Problems: No - RENAL Hx Chronic Kidney Disease: No - ENDOCRINE/METABOLIC Hx Endocrine Disorders: Yes Hx Diabetes Mellitus Type 1: Yes - HEMATOLOGICAL/ONCOLOGICAL Hx Blood Disorders: No - INTEGUMENTARY Hx Dermatological Problems: No - MUSCULOSKELETAL/RHEUMATOLOGICAL Hx Musculoskeletal Disorders: No Hx Falls: No - GASTROINTESTINAL Hx Gastrointestinal Disorders: No - GENITOURINARY/GYNECOLOGICAL Hx Genitourinary Disorders: No - PSYCHIATRIC Hx Substance Use: No - SURGICAL HISTORY Hx Surgeries: Yes Hx Cataract Extraction: Yes - ANESTHESIA Hx Anesthesia: Yes Hx Anesthesia Reactions: No Hx Malignant Hyperthermia: No Meds Allergies/Adverse Reactions: Allergies Allergy/AdvReac Type Severity Reaction Status Date / Time No Known Allergies Allergy Verified 06/22/15 20:48 - Medications Medications: Current Medications Amlodipine Besylate (Norvasc) 5 mg PO DAILY [facility] Aspirin (Aspirin Chewable) 81 mg PO DAILY [facility] Last Admin: 04/25/17 14:55 Dose: 81 mg Dextrose (Dextrose 50% Inj) 0 ml IV STAT PRN; Protocol PRN Reason: Hypoglycemia Protocol Dextrose (Glutose 15) 0 gm PO ONCE PRN; Protocol PRN Reason: Hypoglycemia Protocol Diazepam (Valium) 2 mg PO Q12 PRN PRN Reason: Vertigo Donepezil HCl (Aricept) 10 mg PO HS MINAL Last Admin: 04/24/17 22:09 Dose: 10 mg Ergocalciferol (Drisdol 50,000 Intl Units Cap) 1 cap PO QWK [facility] Stop: 07/11/17 10:01 Last Admin: 04/25/17 09:17 Dose: 1 cap Glucagon (Glucagen Diagnostic Kit) 0 mg IM STAT PRN; Protocol PRN Reason: Hypoglycemia Protocol Heparin Sodium (Porcine) (Heparin) 5,000 units SC Q8 [facility] Last Admin: 04/25/17 13:26 Dose: 5,000 units Dextrose (Dextrose 5% In Water 1000 Ml) 1,000 mls @ 0 mls/hr IV .Q0M PRN; Protocol; Per Protocol PRN Reason: Hypoglycemia Protocol Ceftriaxone Sodium (Rocephin Iv 1 Gm Duplex) 50 mls @ 100 mls/hr IVPB Q24H [facility] Ibuprofen (Motrin Tab) 400 mg PO Q6H PRN PRN Reason: Pain, moderate (4-7) Last Admin: 04/25/17 16:38 Dose: 400 mg Insulin Human Regular (Novolin R) 0 unit SC ACHS [facility] PRN Reason: Protocol Last Admin: 04/25/17 11:26 Dose: Not Given Lisinopril (Zestril) 20 mg PO DAILY [facility] Last Admin: 04/25/17 09:17 Dose: 20 mg Ondansetron HCl (Zofran Inj) 4 mg IVP Q6 PRN PRN Reason: Nausea/Vomiting Last Admin: 04/24/17 06:34 Dose: 4 mg Pantoprazole Sodium (Protonix Ec Tab) 40 mg PO DAILY [facility] Last Admin: 04/25/17 09:17 Dose: 40 mg Rosuvastatin Calcium (Crestor) 10 mg PO HS [facility] Last Admin: 04/24/17 22:09 Dose: 10 mg Physical Exam - Constitutional Appears: Non-toxic, No Acute Distress - Head Exam Head Exam: ATRAUMATIC, NORMAL INSPECTION, NORMOCEPHALIC - Eye Exam Eye Exam: EOMI, Normal appearance, PERRL - ENT Exam ENT Exam: Mucous Membranes Moist, Normal Exam - Respiratory Exam Respiratory Exam: Clear to Auscultation Bilateral, NORMAL BREATHING PATTERN - Cardiovascular Exam Cardiovascular Exam: REGULAR RHYTHM, +S1, +S2 - GI/Abdominal Exam GI & Abdominal Exam: Normal Bowel Sounds, Soft. absent: Tenderness - Rectal Exam Rectal Exam: Deferred - Extremities Exam Extremities exam: Positive for: normal inspection - Back Exam Back exam: NORMAL INSPECTION - Neurological Exam Neurological exam: Abnormal Gait, Alert, CN II-XII Intact, Oriented x3, Reflexes Normal - Psychiatric Exam Psychiatric exam: Normal Affect, Normal Mood - Skin Skin Exam: Dry, Intact, Normal Color, Warm Results - Vital Signs Recent Vital Signs: Last Vital Signs Temp 98.2 F 04/25/17 07:00 Pulse 70 04/25/17 11:02 Resp 20 04/25/17 07:00 BP 142/75 04/25/17 07:00 Pulse Ox 95 04/25/17 11:02 - Labs Result Diagrams: 04/25/17 07:35 04/25/17 07:35 Labs: Laboratory Results - last 24 hr 04/24/17 04/25/17 04/25/17 21:31 06:24 07:35 WBC 6.1 RBC 4.01 Hgb 12.1 Hct 35.0 MCV 87.4 MCH 30.2 MCHC 34.6 RDW 13.2 Plt Count 164 MPV 9.6 Neut % (Auto) 48.8 L Lymph % (Auto) 43.1 H Page % (Auto) 5.0 Eos % (Auto) 2.5 Baso % (Auto) 0.6 Neut # 3.0 Lymph # 2.6 Page # 0.3 Eos # 0.2 Baso # 0.0 Sodium Potassium Chloride Carbon Dioxide Anion Gap BUN Creatinine Est GFR ( Amer) Est GFR (Non-Af Amer) POC Glucose (mg/dL) 129 H 124 H Random Glucose Calcium Total Bilirubin AST ALT Alkaline Phosphatase Total Protein Albumin Globulin Albumin/Globulin Ratio 25-OH Vitamin D Total TSH 3rd Generation 04/25/17 04/25/17 04/25/17 07:35 07:35 11:18 WBC RBC Hgb Hct MCV MCH MCHC RDW Plt Count MPV Neut % (Auto) Lymph % (Auto) Page % (Auto) Eos % (Auto) Baso % (Auto) Neut # Lymph # Page # Eos # Baso # Sodium 135 Potassium 3.7 Chloride 102 Carbon Dioxide 25 Anion Gap 12 BUN 18 H Creatinine 0.7 Est GFR ( Amer) > 60 Est GFR (Non-Af Amer) > 60 POC Glucose (mg/dL) 127 H Random Glucose 115 H Calcium 8.6 Total Bilirubin 0.6 AST 18 ALT 27 Alkaline Phosphatase 47 Total Protein 6.5 Albumin 3.8 Globulin 2.7 Albumin/Globulin Ratio 1.4 25-OH Vitamin D Total < 12.8 L TSH 3rd Generation 2.38 04/25/17 17:06 WBC RBC Hgb Hct MCV MCH MCHC RDW Plt Count MPV Neut % (Auto) Lymph % (Auto) Page % (Auto) Eos % (Auto) Baso % (Auto) Neut # Lymph # Page # Eos # Baso # Sodium Potassium Chloride Carbon Dioxide Anion Gap BUN Creatinine Est GFR ( Amer) Est GFR (Non-Af Amer) POC Glucose (mg/dL) 112 H Random Glucose Calcium Total Bilirubin AST ALT Alkaline Phosphatase Total Protein Albumin Globulin Albumin/Globulin Ratio 25-OH Vitamin D Total TSH 3rd Generation - Imaging and Cardiology CT scan - head Status: Image reviewed by me, Report reviewed by me (No acute findings. Chronic bilateral basal ganglia calcifications noted. 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 Clinically, the patient may have vestibular neuronitis or benign positional vertigo. I recommend the followin. Telemetry 2. MRI of the brain with and without contrast 3. CTA of the head/neck to rule out VBI 4. PT/OT and vestibular rehab 5. Check for possible underlying infection 6. Hydration with NS since she may be dehydrated due to vomiting 7. Start Valium 2 mg Q12 hours PRN veritgo and stop meclizine 8. DVT Px Thank you. Status: Acute Priority: High
[2017-04-25] MEDS ORDERED: Iodixanol 320 MG/ML 100 ML BOTTLE IV ONE (18:03)
[2017-04-25] MEDS: cefTRIAXone IV 1 gm in Dextros 50 ML IVPB SCH (19:45)
--- NOTE | 2017-04-26 02:10 | CP.PCM.PN ---
Subjective - Date & Time of Evaluation Date of Evaluation: 04/25/17 Time of Evaluation: 23:00 - Subjective Subjective: episode of dizziness and nausea - Neuro on board CP - atypical both reproducible and epigastric Objective - Vital Signs/Intake and Output Vital Signs (last 24 hours): Temp Pulse Resp BP Pulse Ox 97.9 F 61 20 114/84 95 04/25/17 23:35 04/26/17 00:42 04/25/17 23:35 04/25/17 23:35 04/25/17 23:35 Intake and Output: 04/25/17 04/26/17 18:59 06:59 Intake Total 500 Balance 500 - Medications Medications: Current Medications Amlodipine Besylate (Norvasc) 5 mg PO DAILY [facility] Last Admin: 04/25/17 17:39 Dose: 5 mg Aspirin (Aspirin Chewable) 81 mg PO DAILY [facility] Last Admin: 04/25/17 14:55 Dose: 81 mg Dextrose (Dextrose 50% Inj) 0 ml IV STAT PRN; Protocol PRN Reason: Hypoglycemia Protocol Dextrose (Glutose 15) 0 gm PO ONCE PRN; Protocol PRN Reason: Hypoglycemia Protocol Diazepam (Valium) 2 mg PO Q12 PRN PRN Reason: Vertigo Donepezil HCl (Aricept) 10 mg PO HS [facility] Last Admin: 04/25/17 21:37 Dose: 10 mg Ergocalciferol (Drisdol 50,000 Intl Units Cap) 1 cap PO QWK [facility] Stop: 07/11/17 10:01 Last Admin: 04/25/17 09:17 Dose: 1 cap Glucagon (Glucagen Diagnostic Kit) 0 mg IM STAT PRN; Protocol PRN Reason: Hypoglycemia Protocol Heparin Sodium (Porcine) (Heparin) 5,000 units SC Q8 [facility] Last Admin: 04/25/17 21:33 Dose: 5,000 units Dextrose (Dextrose 5% In Water 1000 Ml) 1,000 mls @ 0 mls/hr IV .Q0M PRN; Protocol; Per Protocol PRN Reason: Hypoglycemia Protocol Ceftriaxone Sodium (Rocephin Iv 1 Gm Duplex) 50 mls @ 100 mls/hr IVPB Q24H [facility] Last Admin: 04/25/17 19:45 Dose: 100 mls/hr Ibuprofen (Motrin Tab) 400 mg PO Q6H PRN PRN Reason: Pain, moderate (4-7) Last Admin: 04/25/17 16:38 Dose: 400 mg Insulin Human Regular (Novolin R) 0 unit SC ACHS [facility] PRN Reason: Protocol Last Admin: 04/25/17 21:39 Dose: Not Given Lisinopril (Zestril) 20 mg PO DAILY [facility] Last Admin: 04/25/17 09:17 Dose: 20 mg Ondansetron HCl (Zofran Inj) 4 mg IVP Q6 PRN PRN Reason: Nausea/Vomiting Last Admin: 04/24/17 06:34 Dose: 4 mg Pantoprazole Sodium (Protonix Ec Tab) 40 mg PO DAILY [facility] Last Admin: 04/25/17 09:17 Dose: 40 mg Rosuvastatin Calcium (Crestor) 10 mg PO HS [facility] Last Admin: 04/25/17 21:33 Dose: 10 mg - Labs Labs: 04/25/17 07:35 04/25/17 07:35 PT 13.0 SECONDS (9.7-12.2) H 04/23/17 10:05 INR 1.1 04/23/17 10:05 APTT 31 SECONDS (21-34) 04/23/17 10:05 - Constitutional Appears: Well - Head Exam Head Exam: ATRAUMATIC, NORMAL INSPECTION, NORMOCEPHALIC - Eye Exam Eye Exam: EOMI, Normal appearance, PERRL Pupil Exam: NORMAL ACCOMODATION, PERRL - ENT Exam ENT Exam: Mucous Membranes Moist, Normal Exam - Neck Exam Neck Exam: Full ROM, Normal Inspection. absent: Lymphadenopathy - Respiratory Exam Respiratory Exam: Clear to Ausculation Bilateral, NORMAL BREATHING PATTERN - Cardiovascular Exam Cardiovascular Exam: REGULAR RHYTHM, +S1, +S2, Murmur - GI/Abdominal Exam GI & Abdominal Exam: Soft, Normal Bowel Sounds. absent: Tenderness - Extremities Exam Extremities Exam: Full ROM, Normal Capillary Refill, Normal Inspection. absent : Joint Swelling, Pedal Edema - Back Exam Back Exam: NORMAL INSPECTION - Neurological Exam Neurological Exam: Alert, Awake, CN II-XII Intact, Normal Gait, Oriented x3 - Psychiatric Exam Psychiatric exam: Normal Affect, Normal Mood - Skin Skin Exam: Dry, Intact, Normal Color, Warm Assessment and Plan (1) Chest pain Assessment & Plan: stress test in am Status: Acute (2) Sinus bradycardia Status: Acute (3) Diabetes Status: Chronic (4) HLD (hyperlipidemia) Assessment & Plan: ASCVD risk is 22.5% will benefit from statin therapy Status: Chronic (5) HTN (hypertension) Assessment & Plan: cont norvasc and lisinopril Status: Chronic
[2017-04-26] MEDS: (Novolin R) Insulin Human Regular 100 units/ml vial SC SCH ×4 (07:35→21:52)
[2017-04-26] MEDS ORDERED: Aminophylline 25 mg/ml Inj ONE (07:46)
[2017-04-26 08:08] LABS: BASO # 0.1 K/uL (0.0-0.2); BASO % 0.8 % (0.0-2.0); EOS # 0.1 K/uL (0.0-0.7); EOS % 1.8 % (0.0-4.0); LYMPH # 2.5 K/uL (1.0-4.3); LYMPH % 31.7 % (20.0-40.0); MEAN CELL VOLUME 87.6 fL (81.0-99.0); MEAN CORPUSCULAR HGB CONC 34.3 g/dL (33.0-37.0); MEAN PLATELET VOLUME 10.8 fL (7.2-11.7); MONO # 0.4 K/uL (0.0-0.8); MONO % 4.9 % (0.0-10.0); RED CELL DISTRIBUTION WIDTH 13.4 % (11.5-14.5)
[2017-04-26 08:13] LABS: INR 1.1
--- NOTE | 2017-04-26 08:16 | CT ---
PROCEDURE: CT Angiography of the neck with contrast HISTORY: possible VBI COMPARISON: None available. TECHNIQUE: Contiguous axial images of the neck were obtained from the level of the skull-base to the superior mediastinum in the arteriographic phase of enhancement. Coronal and sagittal reformats or also generated. IV contrast dose: 100 cc of Visipaque Radiation Dose - DLP: 604 mGy-cm This CT exam was performed using one or more of the following dose reduction techniques: Automated exposure control, adjustment of the mA and/or kV according to patient size, and/or use of iterative reconstruction technique. FINDINGS: RIGHT CAROTID ARTERIES: Common Carotid Artery: Normal. Carotid Bifurcation: Normal. Internal Carotid Artery:Normal. External Carotid Artery (proximal branches): Normal. LEFT CAROTID ARTERIES: Common Carotid Artery: Normal. Carotid Bifurcation: Normal. Internal Carotid Artery:Normal. External Carotid Artery (proximal branches): Normal. VERTEBRAL ARTERIES: Right Vertebral Artery: Small and thin Left Vertebral Artery: Dominant OTHER FINDINGS: The report concurs with the preliminary [facility] report IMPRESSION: No significant carotid or vertebral stenosis CT Angiography of the Brain. HISTORY: possible VBI COMPARISON: None available. TECHNIQUE: CT angiography of the intracranial arteries was performed. Coronal and sagittal maximum intensity projection reformated images were generated. This CT exam was performed using one or more of the following dose reduction techniques: Automated exposure control, adjustment of the mA and/or kV according to patient size, and/or use of iterative reconstruction technique. FINDINGS: INTERNAL CEREBRAL ARTERIES: Unremarkable. The skull base, petrous, cavernous and supraclinoid segments are bilaterally widely patent. ANTERIOR CEREBRAL ARTERIES: Unremarkable. A1 and A2 segments are widely patent. Smaller distal branches unremarkable, as visualized. MIDDLE CEREBRAL ARTERIES: Unremarkable. M1 and M2 segments are widely patent. Perisylvian branches grossly symmetric. POSTERIOR CIRCULATION: Basilar Artery: Unremarkable. Distal Vertebral Arteries: Unremarkable. Posterior Cerebral Arteries: Unremarkable. Posterior Inferior Cerebellar Arteries: Unremarkable. ANEURYSM/ VASCULAR MALFORMATIONS: None. OTHER FINDINGS: None. IMPRESSION: Unremarkable CT Angiography of the Brain.
[2017-04-26 08:17] LABS: ALKALINE PHOSPHATASE 45 U/L (38-126); ALT/SGPT 36 U/L (9-52); AST/SGOT 22 U/L (14-36); BILIRUBIN,TOTAL 0.4 mg/dL (0.2-1.3); BLOOD UREA NITROGEN 19 mg/dL (7-17); CALCIUM 8.7 mg/dl (8.6-10.4); CARBON DIOXIDE 27 mmol/L (22-30); CHLORIDE 101 mmol/L (98-107); GFR AFRICAN-AMERICAN > 60; GLUCOSE,RANDOM 111 mg/dL (65-105); SODIUM 135 mmol/L (132-148); TOTAL PROTEIN 7.8 g/dL (6.3-8.3)
--- NOTE | 2017-04-26 09:51 | CP.PCM.PN ---
Subjective - Date & Time of Evaluation Date of Evaluation: 04/26/17 Time of Evaluation: 09:49 - Subjective Subjective: Progress Note for Dr. Perry Patient was getting stress test this morning. Patient seen after stress test. Patient states she's dizzy when she sits. Patient states her chest pain is only when her chest is pressed on. Patient states she has a headache and feels only dizzy when she's sitting and not when walking. Objective - Vital Signs/Intake and Output Vital Signs (last 24 hours): Temp Pulse Resp BP Pulse Ox 97.5 F L 56 L 20 161/100 H 98 04/26/17 08:20 04/26/17 08:20 04/26/17 08:20 04/26/17 08:20 04/26/17 08:20 - Medications Medications: Current Medications Amlodipine Besylate (Norvasc) 5 mg PO DAILY [facility] Last Admin: 04/25/17 17:39 Dose: 5 mg Aspirin (Aspirin Chewable) 81 mg PO DAILY [facility] Last Admin: 04/25/17 14:55 Dose: 81 mg Dextrose (Dextrose 50% Inj) 0 ml IV STAT PRN; Protocol PRN Reason: Hypoglycemia Protocol Dextrose (Glutose 15) 0 gm PO ONCE PRN; Protocol PRN Reason: Hypoglycemia Protocol Diazepam (Valium) 2 mg PO Q12 PRN PRN Reason: Vertigo Donepezil HCl (Aricept) 10 mg PO HS [facility] Last Admin: 04/25/17 21:37 Dose: 10 mg Ergocalciferol (Drisdol 50,000 Intl Units Cap) 1 cap PO QWK [facility] Stop: 07/11/17 10:01 Last Admin: 04/25/17 09:17 Dose: 1 cap Glucagon (Glucagen Diagnostic Kit) 0 mg IM STAT PRN; Protocol PRN Reason: Hypoglycemia Protocol Heparin Sodium (Porcine) (Heparin) 5,000 units SC Q8 [facility] Last Admin: 04/26/17 05:17 Dose: 5,000 units Dextrose (Dextrose 5% In Water 1000 Ml) 1,000 mls @ 0 mls/hr IV .Q0M PRN; Protocol; Per Protocol PRN Reason: Hypoglycemia Protocol Ceftriaxone Sodium (Rocephin Iv 1 Gm Duplex) 50 mls @ 100 mls/hr IVPB Q24H [facility] Last Admin: 04/25/17 19:45 Dose: 100 mls/hr Ibuprofen (Motrin Tab) 400 mg PO Q6H PRN PRN Reason: Pain, moderate (4-7) Last Admin: 04/25/17 16:38 Dose: 400 mg Insulin Human Regular (Novolin R) 0 unit SC ACHS [facility]AL PRN Reason: Protocol Last Admin: 04/26/17 07:35 Dose: Not Given Lisinopril (Zestril) 20 mg PO DAILY [facility] Last Admin: 04/25/17 09:17 Dose: 20 mg Ondansetron HCl (Zofran Inj) 4 mg IVP Q6 PRN PRN Reason: Nausea/Vomiting Last Admin: 04/24/17 06:34 Dose: 4 mg Pantoprazole Sodium (Protonix Ec Tab) 40 mg PO DAILY [facility] Last Admin: 04/25/17 09:17 Dose: 40 mg Rosuvastatin Calcium (Crestor) 10 mg PO HS [facility] Last Admin: 04/25/17 21:33 Dose: 10 mg - Labs Labs: 04/26/17 07:54 04/26/17 07:54 PT 12.8 SECONDS (9.7-12.2) H 04/26/17 07:54 INR 1.1 04/26/17 07:54 APTT 31 SECONDS (21-34) 04/23/17 10:05 - Constitutional Appears: Non-toxic - Head Exam Head Exam: NORMAL INSPECTION - Eye Exam Eye Exam: EOMI, Normal appearance - ENT Exam ENT Exam: Mucous Membranes Moist - Neck Exam Neck Exam: Full ROM - Respiratory Exam Respiratory Exam: Clear to Ausculation Bilateral, NORMAL BREATHING PATTERN. absent: Accessory Muscle Use - Cardiovascular Exam Cardiovascular Exam: REGULAR RHYTHM, +S1, +S2. absent: Bradycardia, Tachycardia - GI/Abdominal Exam GI & Abdominal Exam: Soft - Extremities Exam Extremities Exam: Full ROM. absent: Pedal Edema - Neurological Exam Neurological Exam: Alert, Awake - Psychiatric Exam Psychiatric exam: Normal Affect, Normal Mood - Skin Skin Exam: Normal Color, Warm Assessment and Plan - Assessment and Plan (Free Text) Assessment: Chest pain Assessment and Plan: Cardiology consult, Dr Padilla, help appreciated On telemetry EKG shows t-wave inversions which is a change from prior EKG DEEPIKA negative x 3 BNP 31 (WNL) ECHO 04/23/17- LV function within normal range; grade 1 abnormal relaxation pattern; LA borderline dilated; mild tricuspid regurgitation aortic valve mildly sclerotic (please see full report) Patient scheduled for stress test with Dr. Padilla on 04/26/17 (help appreciated) - NPO after midnight 04/26/17 stress test this morning - f/u Nausea & vomiting Assessment and Plan: GI consult, Dr Shepard, help appreciated Per Dr. Sanders (GI), vomiting likely secondary to dizziness Dizziness Assessment and Plan: Head CT 04/24/17 - no acute intracranial abnormality; chronic microvascular ischemic change. B/l basal ganglia calcification; mild cerebral atrophy (please see full report) Orthostatics: supine 130/75, sitting 122/64, standing 113/70 ECHO 04/23/17- LV function within normal range; grade 1 abnormal relaxation pattern; LA borderline dilated; mild tricuspid regurgitation aortic valve mildly sclerotic (please see full report) Patient scheduled for stress test with Dr. Padilla on 04/26/17 (help appreciated) - NPO after midnight F/U PT eval 04/[address] Choi: recommends Mg Sulfate 2 gm IVPB 1 dose. Decadron 10mg IVP 1 dose and depakote 500mg IVPB one dose Vitamin D <12.8 TSH 2.38 Ergocalciferol 01970 PO weekly Meclizine 12.5mg PO TID F/U RPR Diabetes Assessment and Plan: HgbA1C 7.4 RISS - medium dose protocol Hypoglycemia protocol Holding home meds Lantus and Metformin for now HLD (hyperlipidemia) Assessment and Plan: Contine home med Rosuvastatin 10mg PO HS Tri 229, Chol 181, LDL 118, HDL 42 HTN (hypertension) Assessment and Plan: BP well controlled Continue home med Lisinopril 20mg PO QD Alzheimers disease Assessment and Plan: Continue home med Aricept 10mg PO HS Prophylactic measure Assessment and Plan: SCDs Protonix 40mg PO QD Heparin 5000u SC Q8H Yeny Albert, PGY1
--- NOTE | 2017-04-26 09:52 | CP.PCM.PN ---
Subjective - Date & Time of Evaluation Date of Evaluation: 04/26/17 Time of Evaluation: 09:00 - Subjective Subjective: s/p stress test had abdominal discomfort post lexiscan infusion Objective - Vital Signs/Intake and Output Vital Signs (last 24 hours): Temp Pulse Resp BP Pulse Ox 97.5 F L 56 L 20 161/100 H 98 04/26/17 08:20 04/26/17 08:20 04/26/17 08:20 04/26/17 08:20 04/26/17 08:20 - Medications Medications: Current Medications Amlodipine Besylate (Norvasc) 5 mg PO DAILY [facility] Last Admin: 04/25/17 17:39 Dose: 5 mg Aspirin (Aspirin Chewable) 81 mg PO DAILY [facility] Last Admin: 04/25/17 14:55 Dose: 81 mg Dextrose (Dextrose 50% Inj) 0 ml IV STAT PRN; Protocol PRN Reason: Hypoglycemia Protocol Dextrose (Glutose 15) 0 gm PO ONCE PRN; Protocol PRN Reason: Hypoglycemia Protocol Diazepam (Valium) 2 mg PO Q12 PRN PRN Reason: Vertigo Donepezil HCl (Aricept) 10 mg PO HS [facility] Last Admin: 04/25/17 21:37 Dose: 10 mg Ergocalciferol (Drisdol 50,000 Intl Units Cap) 1 cap PO QWK [facility] Stop: 07/11/17 10:01 Last Admin: 04/25/17 09:17 Dose: 1 cap Glucagon (Glucagen Diagnostic Kit) 0 mg IM STAT PRN; Protocol PRN Reason: Hypoglycemia Protocol Heparin Sodium (Porcine) (Heparin) 5,000 units SC Q8 [facility] Last Admin: 04/26/17 05:17 Dose: 5,000 units Dextrose (Dextrose 5% In Water 1000 Ml) 1,000 mls @ 0 mls/hr IV .Q0M PRN; Protocol; Per Protocol PRN Reason: Hypoglycemia Protocol Ceftriaxone Sodium (Rocephin Iv 1 Gm Duplex) 50 mls @ 100 mls/hr IVPB Q24H [facility] Last Admin: 04/25/17 19:45 Dose: 100 mls/hr Ibuprofen (Motrin Tab) 400 mg PO Q6H PRN PRN Reason: Pain, moderate (4-7) Last Admin: 04/25/17 16:38 Dose: 400 mg Insulin Human Regular (Novolin R) 0 unit SC ACHS [facility] PRN Reason: Protocol Last Admin: 04/26/17 07:35 Dose: Not Given Lisinopril (Zestril) 20 mg PO DAILY [facility] Last Admin: 04/25/17 09:17 Dose: 20 mg Ondansetron HCl (Zofran Inj) 4 mg IVP Q6 PRN PRN Reason: Nausea/Vomiting Last Admin: 04/24/17 06:34 Dose: 4 mg Pantoprazole Sodium (Protonix Ec Tab) 40 mg PO DAILY [facility] Last Admin: 04/25/17 09:17 Dose: 40 mg Rosuvastatin Calcium (Crestor) 10 mg PO HS [facility] Last Admin: 04/25/17 21:33 Dose: 10 mg - Labs Labs: 04/26/17 07:54 04/26/17 07:54 PT 12.8 SECONDS (9.7-12.2) H 04/26/17 07:54 INR 1.1 04/26/17 07:54 APTT 31 SECONDS (21-34) 04/23/17 10:05 - Constitutional Appears: Well - Head Exam Head Exam: ATRAUMATIC, NORMAL INSPECTION, NORMOCEPHALIC - Eye Exam Eye Exam: EOMI, Normal appearance, PERRL Pupil Exam: NORMAL ACCOMODATION, PERRL - ENT Exam ENT Exam: Mucous Membranes Moist, Normal Exam - Neck Exam Neck Exam: Full ROM, Normal Inspection. absent: Lymphadenopathy - Respiratory Exam Respiratory Exam: Clear to Ausculation Bilateral, NORMAL BREATHING PATTERN - Cardiovascular Exam Cardiovascular Exam: REGULAR RHYTHM, +S1, +S2, Murmur - GI/Abdominal Exam GI & Abdominal Exam: Soft, Normal Bowel Sounds. absent: Tenderness - Extremities Exam Extremities Exam: Full ROM, Normal Capillary Refill, Normal Inspection. absent : Joint Swelling, Pedal Edema - Back Exam Back Exam: NORMAL INSPECTION - Neurological Exam Neurological Exam: Alert, Awake, CN II-XII Intact, Normal Gait, Oriented x3 - Psychiatric Exam Psychiatric exam: Normal Affect, Normal Mood - Skin Skin Exam: Dry, Intact, Normal Color, Warm Assessment and Plan (1) Chest pain Status: Acute (2) Sinus bradycardia Status: Acute (3) Diabetes Status: Chronic (4) HLD (hyperlipidemia) Status: Chronic (5) HTN (hypertension) Status: Chronic
--- NOTE | 2017-04-26 10:53 | CP.PCM.PN ---
Subjective - Date & Time of Evaluation Date of Evaluation: 04/26/17 Time of Evaluation: 10:47 - Subjective Subjective: Ms. Herring was seen and examined at the stress test area. She is alert, oriented speaks mainly Welsh. She is complaining of vertigo especially with movement. She further claims of fear of ambulating due to fear of falling. Patient is on medication for vertigo. She further complain of generalize headache radiating to her bilateral eyes. She further describe the pains as 10/ 10 sharp. She denies nausea, weakness, lightheadedness. There was no untoward events overnight. Objective - Vital Signs/Intake and Output Vital Signs (last 24 hours): Temp Pulse Resp BP Pulse Ox 97.5 F L 56 L 20 161/100 H 98 04/26/17 08:20 04/26/17 08:20 04/26/17 08:20 04/26/17 08:20 04/26/17 08:20 - Medications Medications: Current Medications Amlodipine Besylate (Norvasc) 5 mg PO DAILY [facility] Last Admin: 04/25/17 17:39 Dose: 5 mg Aspirin (Aspirin Chewable) 81 mg PO DAILY [facility] Last Admin: 04/25/17 14:55 Dose: 81 mg Dextrose (Dextrose 50% Inj) 0 ml IV STAT PRN; Protocol PRN Reason: Hypoglycemia Protocol Dextrose (Glutose 15) 0 gm PO ONCE PRN; Protocol PRN Reason: Hypoglycemia Protocol Diazepam (Valium) 2 mg PO Q12 PRN PRN Reason: Vertigo Donepezil HCl (Aricept) 10 mg PO HS [facility] Last Admin: 04/25/17 21:37 Dose: 10 mg Ergocalciferol (Drisdol 50,000 Intl Units Cap) 1 cap PO QWK [facility] Stop: 07/11/17 10:01 Last Admin: 04/25/17 09:17 Dose: 1 cap Glucagon (Glucagen Diagnostic Kit) 0 mg IM STAT PRN; Protocol PRN Reason: Hypoglycemia Protocol Heparin Sodium (Porcine) (Heparin) 5,000 units SC Q8 [facility] Last Admin: 04/26/17 05:17 Dose: 5,000 units Dextrose (Dextrose 5% In Water 1000 Ml) 1,000 mls @ 0 mls/hr IV .Q0M PRN; Protocol; Per Protocol PRN Reason: Hypoglycemia Protocol Ceftriaxone Sodium (Rocephin Iv 1 Gm Duplex) 50 mls @ 100 mls/hr IVPB Q24H [facility] Last Admin: 04/25/17 19:45 Dose: 100 mls/hr Ibuprofen (Motrin Tab) 400 mg PO Q6H PRN PRN Reason: Pain, moderate (4-7) Last Admin: 04/25/17 16:38 Dose: 400 mg Insulin Human Regular (Novolin R) 0 unit SC ACHS [facility] PRN Reason: Protocol Last Admin: 04/26/17 07:35 Dose: Not Given Lisinopril (Zestril) 20 mg PO DAILY [facility] Last Admin: 04/25/17 09:17 Dose: 20 mg Ondansetron HCl (Zofran Inj) 4 mg IVP Q6 PRN PRN Reason: Nausea/Vomiting Last Admin: 04/24/17 06:34 Dose: 4 mg Pantoprazole Sodium (Protonix Ec Tab) 40 mg PO DAILY [facility] Last Admin: 04/25/17 09:17 Dose: 40 mg Rosuvastatin Calcium (Crestor) 10 mg PO HS [facility] Last Admin: 04/25/17 21:33 Dose: 10 mg - Labs Labs: 04/26/17 07:54 04/26/17 07:54 PT 12.8 SECONDS (9.7-12.2) H 04/26/17 07:54 INR 1.1 04/26/17 07:54 APTT 31 SECONDS (21-34) 04/23/17 10:05 - Constitutional Appears: No Acute Distress - Head Exam Head Exam: ATRAUMATIC - Neurological Exam Neurological Exam: Alert, Awake, CN II-XII Intact Neuro motor strength exam: Left Upper Extremity: 5, Right Upper Extremity: 5, Left Lower Extremity: 5, Right Lower Extremity: 5 Additional comments: She is able to answer questions appropriately and follow commands. Sensation remains intact. Assessment and Plan (1) Head ache Assessment & Plan: Case discussed with Dr. Choi, recommenda Magnesium sulfate 2 grams IVPB for 1 dose, Decadron 10 mg IVP for 1 dose, and Depakote 500 mg IVPB for 1 dose. Status: Acute (2) Vertigo Assessment & Plan: Case discussed with Dr. Choi, continue current medical regimen, Start with PT/ OT eval and treat Status: Acute
[2017-04-26] MEDS: Pantoprazole 40 mg EC Tab PO SCH (10:56)
[2017-04-26] MEDS: Magnesium Sulfate 1 gm in D5W 1 GM/100 ML BAG IVPB SCH ×4 (11:00→16:13)
[2017-04-26 16:42] VITALS: O2SAT 95
--- NOTE | 2017-04-26 18:34 | MRI ---
PROCEDURE: MRI of the brain dated 04/26/2017 HISTORY: vertigo COMPARISON: Comparison made with prior study 04/24/2017 and CTA 04/25/2017. TECHNIQUE: Multiplanar, multisequence MR images of the brain were obtained without intravenous contrast enhancement. By motion artifact. FINDINGS: HEMORRHAGE: No acute parenchymal, subarachnoid or extra-axial hemorrhage. No evidence of hemosiderin deposition identified on gradient echo weighted sequence DWI: No evidence of an acute or early subacute infarcts seen on diffusion imaging. BRAIN PARENCHYMA: Minor chronic periventricular white matter ischemic changes seen within the periventricular white matter. Additionally, there are multiple tiny lacunar type infarcts seen scattered about the deep and subcortical white matter of both cerebral hemispheres. Mild to moderate generalized volume loss. . Empty sella. VENTRICLES: No obstructive hydrocephalus. CRANIUM: There are no acute calvarial fractures. . Note made of a small elliptical shaped focal area of CSF signal within the left petrous apex which corresponds to a well-circumscribed on smooth bony expansile change on the CT scan. Rule out the possibility of a small aneurysm arising from the adjacent petrous segment left internal carotid artery, arachnoid cyst or possibly a schwannoma with left 5th cranial nerve. . Recommend followup pre and post-contrast MRI of the brain with T1 fat-suppressed technique to further characterize this lesion ORBITS: Changes of bilateral cataract surgery again noted PARANASAL SINUSES/MASTOIDS: Visualized paranasal and mastoid air complexes are well-developed. Minimal mucosal thickening seen within a few ethmoid air cells. VASCULAR SYSTEM: Visualized major vascular flow voids at skull base are patent. . OTHER FINDINGS: None. IMPRESSION: Limited motion degraded study. No evidence of acute intracranial hemorrhage or infarct. . Minor chronic white matter ischemic changes. There is an elliptical shaped area of increased in T2 signal in the left petrous bone which corresponds to a area of low attenuation and smooth expansile changes of the calvarium. 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 . Recommend followup pre and post-contrast MRI of the brain with T1 fat-suppressed technique to further characterize this lesion
[2017-04-26] MEDS: cefTRIAXone IV 1 gm in Dextros 50 ML IVPB SCH (18:45)
[2017-04-27] MEDS: (Novolin R) Insulin Human Regular 100 units/ml vial SC SCH ×3 (08:30→18:17)
--- NOTE | 2017-04-27 09:26 | CP.PCM.PN ---
Subjective - Date & Time of Evaluation Date of Evaluation: 04/27/17 Time of Evaluation: 09:22 - Subjective Subjective: Ms. Herring was seen and examined at the bedside. She is alert, oriented in all spheres. Language line was employed during the assessment ( Carlos O. ID# [id number]) . She complains of dizziness with moderate blurred room spinning. She has medical therapy for vertigo.She denies any nausea, vomiting, or headache. She also compalin of back pain 6/10 non-radiating. There was no untoward events overnight. Objective - Vital Signs/Intake and Output Vital Signs (last 24 hours): Temp Pulse Resp BP Pulse Ox 97.4 F L 75 20 115/71 95 04/26/17 23:35 04/26/17 23:35 04/26/17 23:35 04/26/17 23:35 04/26/17 23:35 - Medications Medications: Current Medications Amlodipine Besylate (Norvasc) 5 mg PO DAILY [facility] Last Admin: 04/26/17 14:52 Dose: 5 mg Aspirin (Aspirin Chewable) 81 mg PO DAILY [facility] Last Admin: 04/26/17 14:52 Dose: 81 mg Dextrose (Dextrose 50% Inj) 0 ml IV STAT PRN; Protocol PRN Reason: Hypoglycemia Protocol Dextrose (Glutose 15) 0 gm PO ONCE PRN; Protocol PRN Reason: Hypoglycemia Protocol Diazepam (Valium) 2 mg PO Q12 PRN PRN Reason: Vertigo Donepezil HCl (Aricept) 10 mg PO HS [facility] Last Admin: 04/26/17 21:48 Dose: 10 mg Ergocalciferol (Drisdol 50,000 Intl Units Cap) 1 cap PO QWK [facility] Stop: 07/11/17 10:01 Last Admin: 04/25/17 09:17 Dose: 1 cap Glucagon (Glucagen Diagnostic Kit) 0 mg IM STAT PRN; Protocol PRN Reason: Hypoglycemia Protocol Heparin Sodium (Porcine) (Heparin) 5,000 units SC Q8 [facility] Last Admin: 04/27/17 06:45 Dose: 5,000 units Dextrose (Dextrose 5% In Water 1000 Ml) 1,000 mls @ 0 mls/hr IV .Q0M PRN; Protocol; Per Protocol PRN Reason: Hypoglycemia Protocol Ceftriaxone Sodium (Rocephin Iv 1 Gm Duplex) 50 mls @ 100 mls/hr IVPB Q24H [facility] Last Admin: 04/26/17 18:45 Dose: 100 mls/hr Ibuprofen (Motrin Tab) 400 mg PO Q6H PRN PRN Reason: Pain, moderate (4-7) Last Admin: 04/26/17 18:49 Dose: 400 mg Insulin Human Regular (Novolin R) 0 unit SC ACHS [facility] PRN Reason: Protocol Last Admin: 04/26/17 21:52 Dose: Not Given Lisinopril (Zestril) 20 mg PO DAILY [facility] Last Admin: 04/26/17 14:52 Dose: 20 mg Ondansetron HCl (Zofran Inj) 4 mg IVP Q6 PRN PRN Reason: Nausea/Vomiting Last Admin: 04/24/17 06:34 Dose: 4 mg Pantoprazole Sodium (Protonix Ec Tab) 40 mg PO DAILY [facility] Last Admin: 04/26/17 10:56 Dose: Not Given Rosuvastatin Calcium (Crestor) 10 mg PO HS [facility] Last Admin: 04/26/17 21:48 Dose: 10 mg - Labs Labs: 04/26/17 07:54 04/26/17 07:54 PT 12.8 SECONDS (9.7-12.2) H 04/26/17 07:54 INR 1.1 04/26/17 07:54 APTT 31 SECONDS (21-34) 04/23/17 10:05 - Constitutional Appears: No Acute Distress - Head Exam Head Exam: ATRAUMATIC - Neurological Exam Neurological Exam: Alert, Awake, Oriented x3 Neuro motor strength exam: Left Upper Extremity: 5, Right Upper Extremity: 5, Left Lower Extremity: 5, Right Lower Extremity: 5 Additional comments: She is able to answer questions appropriately and follow commands such as field accommodation, finger to nose test and strength test. Sensation remains intact. Assessment and Plan (1) Vertigo Assessment & Plan: Case discussed with Dr. Choi, continue all current medical, physical, and occupational therapies. Follow up with physical rehab regarding vestibular rehab. Status: Acute
[2017-04-27] MEDS: Pantoprazole 40 mg EC Tab PO SCH (09:31)
--- NOTE | 2017-04-27 10:00 | CP.PCM.PN ---
Subjective - Date & Time of Evaluation Date of Evaluation: 04/27/17 Time of Evaluation: 10:00 - Subjective Subjective: Progress Note for Dr. Perry Patient states she still feels dizzy. Patient states she feels better than yesterday. Patient admits to nausea. Patient denies vomiting, and chest pain. She admitted to abdominal pain yesterday, which she does not feel today. Objective - Vital Signs/Intake and Output Vital Signs (last 24 hours): Temp Pulse Resp BP Pulse Ox 97.4 F L 75 20 115/71 95 04/26/17 23:35 04/26/17 23:35 04/26/17 23:35 04/26/17 23:35 04/26/17 23:35 - Medications Medications: Current Medications Amlodipine Besylate (Norvasc) 5 mg PO DAILY [facility] Last Admin: 04/27/17 09:32 Dose: 5 mg Aspirin (Aspirin Chewable) 81 mg PO DAILY [facility] Last Admin: 04/27/17 09:32 Dose: 81 mg Dextrose (Dextrose 50% Inj) 0 ml IV STAT PRN; Protocol PRN Reason: Hypoglycemia Protocol Dextrose (Glutose 15) 0 gm PO ONCE PRN; Protocol PRN Reason: Hypoglycemia Protocol Diazepam (Valium) 2 mg PO Q12 PRN PRN Reason: Vertigo Last Admin: 04/27/17 09:31 Dose: 2 mg Donepezil HCl (Aricept) 10 mg PO HS [facility] Last Admin: 04/26/17 21:48 Dose: 10 mg Ergocalciferol (Drisdol 50,000 Intl Units Cap) 1 cap PO QWK [facility] Stop: 07/11/17 10:01 Last Admin: 04/25/17 09:17 Dose: 1 cap Glucagon (Glucagen Diagnostic Kit) 0 mg IM STAT PRN; Protocol PRN Reason: Hypoglycemia Protocol Heparin Sodium (Porcine) (Heparin) 5,000 units SC Q8 [facility] Last Admin: 04/27/17 06:45 Dose: 5,000 units Dextrose (Dextrose 5% In Water 1000 Ml) 1,000 mls @ 0 mls/hr IV .Q0M PRN; Protocol; Per Protocol PRN Reason: Hypoglycemia Protocol Ceftriaxone Sodium (Rocephin Iv 1 Gm Duplex) 50 mls @ 100 mls/hr IVPB Q24H [facility] Last Admin: 04/26/17 18:45 Dose: 100 mls/hr Ibuprofen (Motrin Tab) 400 mg PO Q6H PRN PRN Reason: Pain, moderate (4-7) Last Admin: 04/27/17 09:31 Dose: 400 mg Insulin Human Regular (Novolin R) 0 unit SC ACHS MINAL PRN Reason: Protocol Last Admin: 04/27/17 08:30 Dose: 2 unit Lisinopril (Zestril) 20 mg PO DAILY [facility] Last Admin: 04/27/17 09:32 Dose: 20 mg Ondansetron HCl (Zofran Inj) 4 mg IVP Q6 PRN PRN Reason: Nausea/Vomiting Last Admin: 04/24/17 06:34 Dose: 4 mg Pantoprazole Sodium (Protonix Ec Tab) 40 mg PO DAILY [facility] Last Admin: 04/27/17 09:31 Dose: 40 mg Rosuvastatin Calcium (Crestor) 10 mg PO HS [facility] Last Admin: 04/26/17 21:48 Dose: 10 mg - Labs Labs: 04/26/17 07:54 04/26/17 07:54 PT 12.8 SECONDS (9.7-12.2) H 04/26/17 07:54 INR 1.1 04/26/17 07:54 APTT 31 SECONDS (21-34) 04/23/17 10:05 - Constitutional Appears: Non-toxic - Head Exam Head Exam: NORMAL INSPECTION - Eye Exam Eye Exam: EOMI, Normal appearance - ENT Exam ENT Exam: Mucous Membranes Moist - Neck Exam Neck Exam: Full ROM - Respiratory Exam Respiratory Exam: Clear to Ausculation Bilateral. absent: Accessory Muscle Use - Cardiovascular Exam Cardiovascular Exam: +S1, +S2 - GI/Abdominal Exam GI & Abdominal Exam: Soft. absent: Tenderness - Extremities Exam Extremities Exam: Full ROM. absent: Joint Swelling - Neurological Exam Neurological Exam: Alert, Awake Additional comments: patient has dizziness upon sitting up and tilting head down. Patient cannot move her head from right to left and left to right without feeling uncomfortable. - Psychiatric Exam Psychiatric exam: Normal Affect, Normal Mood - Skin Skin Exam: Pallor, Warm Assessment and Plan - Assessment and Plan (Free Text) Assessment: Chest pain Assessment and Plan: Cardiology consult, Dr Padilla, help appreciated On telemetry EKG shows t-wave inversions which is a change from prior EKG DEEPIKA negative x 3 BNP 31 (WNL) ECHO 04/23/17- LV function within normal range; grade 1 abnormal relaxation pattern; LA borderline dilated; mild tricuspid regurgitation aortic valve mildly sclerotic (please see full report) f/u 04/26 stress test results and Dr. Padilla recommendations Nausea & vomiting Assessment and Plan: GI consult, Dr Shepard, help appreciated Per Dr. Sanders (GI), vomiting likely secondary to dizziness Dizziness Assessment and Plan: Head CT 04/24/17 - no acute intracranial abnormality; chronic microvascular ischemic change. B/l basal ganglia calcification; mild cerebral atrophy (please see full report) Orthostatics: supine 130/75, sitting 122/64, standing 113/70 ECHO 04/23/17- LV function within normal range; grade 1 abnormal relaxation pattern; LA borderline dilated; mild tricuspid regurgitation aortic valve mildly sclerotic (please see full report) Patient scheduled for stress test with Dr. Padilla on 04/26/17 (help appreciated) - NPO after midnight F/U PT eval 04/[address] Choi: recommends Mg Sulfate 2 gm IVPB 1 dose. Decadron 10mg IVP 1 dose and depakote 500mg IVPB one dose administered 04/26 04/[address] Choi: recommend sto continue all current medical, physical, and occupational therapies. Follow up with physical rehab regarding vestibular rehab. Vitamin D <12.8 TSH 2.38 Ergocalciferol 41992 PO weekly Meclizine 12.5mg PO TID F/U RPR Diabetes Assessment and Plan: HgbA1C 7.4 RISS - medium dose protocol Hypoglycemia protocol Holding home meds Lantus and Metformin for now HLD (hyperlipidemia) Assessment and Plan: Contine home med Rosuvastatin 10mg PO HS Tri 229, Chol 181, LDL 118, HDL 42 HTN (hypertension) Assessment and Plan: BP well controlled Continue home med Lisinopril 20mg PO QD Alzheimers disease Assessment and Plan: Continue home med Aricept 10mg PO HS Prophylactic measure Assessment and Plan: SCDs Protonix 40mg PO QD Heparin 5000u SC Q8H disposition: patient has dizziness upon sitting up and tilting head down. Patient cannot move her head from right to left and left to right without feeling uncomfortable. Patient is to be discharged once Physical therapy okays discharge. Yeny Albert, PGY1
[2017-04-27 12:03] LABS: BASO % 0.4 % (0.0-2.0); EOS % 0.1 % (0.0-4.0); LYMPH # 1.7 K/uL (1.0-4.3); LYMPH % 14.2 % (20.0-40.0); MEAN CELL VOLUME 87.8 fL (81.0-99.0); MEAN CORPUSCULAR HEMOGLOBIN 29.9 pg (27.0-31.0); MONO # 0.4 K/uL (0.0-0.8); MONO % 3.3 % (0.0-10.0); RED CELL DISTRIBUTION WIDTH 13.5 % (11.5-14.5)
[2017-04-27 12:27] LABS: ALKALINE PHOSPHATASE 51 U/L (38-126); ALT/SGPT 34 U/L (9-52); AST/SGOT 24 U/L (14-36); BILIRUBIN,TOTAL 0.3 mg/dL (0.2-1.3); BLOOD UREA NITROGEN 30 mg/dL (7-17); CALCIUM 9.2 mg/dl (8.6-10.4); CARBON DIOXIDE 25 mmol/L (22-30); CHLORIDE 97 mmol/L (98-107); GFR AFRICAN-AMERICAN > 60; GLUCOSE,RANDOM 221 mg/dL (65-105); POTASSIUM 4.5 mmol/L (3.6-5.2); SODIUM 132 mmol/L (132-148); TOTAL PROTEIN 8.2 g/dL (6.3-8.3)
[2017-04-27 15:36] VITALS: BP 103/57; RESP 18; TEMP 98.4
--- NOTE | 2017-04-27 16:51 | CARD ---
APPROVED REPORT Protocol: LEXISCAN Test Type: LEXISCAN STRESS Test Indications: CP Target HR: 146 bpm Resting ECG: normal Resting Heart Rate: 61 bpm Resting Blood Pressure: 128/80mmHg submaximum (85%): 124 bpm TEST SUMMARY HXTZXUEVOMUSOV28:02..1.059/.0. PREINFSNHYPERV.38:230.00.01.005548/80.0. INFUSIONDOSE 100:300.00.01.065/.0. EINIBJWMV56:100.00.01.953359/80.0. PROCEDURE Pharmacologic stress testing was performed using 0.4mg per 5ml of regadenoson given intravenously over 7-10 seconds. Reversal agent aminophyline 50 mg, given intravenously for Headache. POST EXERCISE Reason for Termination: Protocol Completed Target HR: No Max HR: 65 bpm 75% of Maximum Predicted HR: 146 bpm Exercise duration: 00:30 min:sec, 0 Stage Exercise capacity: 1.0METs Max Blood Pressure: 128/80mmHg Blood Pressure response to exercise: n/a Heart Rate response to exercise: n/a Chest Pain: No, none Angina index: 0 Arrhythmia: No, none ST Change: No, none Deviation: 0 mm EXAM: Myocardial Perfusion STRESS/REST Imaging Protocol The imaging protocol used to acquire images was Stress Tc-99m/rest Tc-99m 1 day Rest Spect myocardial perfusion imaging was performed in supine position 45 minutes following the injection of 31.2 mCi of Tc-99 Myoview. Gated Stress Spect was performed 45 minutes after intravenous 12.1 mCi Tc-99 Myoview injection. The images were gated to evaluate regional wall motion and calculate ventricular ejection fraction.Images were reconstructed using backfilter projection method in short horizontal and verticle long axis. Spect slices were generated. RESTING DATA EDV37.59rjWE2.60L/min ESV7.00mlMyocardial Mass81.00g Av. Heart Rate84.00bpm EF81.00% STRESS DATA EDV50.30ilAH6.50L/min ESV15.00mlMyocardial Mass95.00g EF70.00% Regional WT score at stress:0.00 Regional WM score at stress:0.00 Summed WT score at stress:2.00 Av. Heart Rate71.00bpmSummed WM score at stress:0.00 Study quality was fair. Left Ventricular size was Normal at Rest and Stress. The rest and stress images show normal perfusion, normal contraction and thickening. LV Perf. Quant 17 Seg. SSS0.00 17 Seg. SRS1.00 17 Seg. SDS0.00 Stress Defect Extent (% LAD)0.00Rest Defect Extent (% LAD)0.00Rev. Defect Extent (% LAD)0.00 Stress Defect Extent (% LCX)0.00Rest Defect Extent (% LCX)16.30Rev. Defect Extent (% LCX)0.00 Stress Defect Extent (% RCA)0.00Rest Defect Extent (% RCA)0.00Rev. Defect Extent (% RCA)0.00 Stress Defect Extent (% DARIAN)0.00Rest Defect Extent (% DARIAN)2.80Rev. Defect Extent (% DARIAN)0.00 Other Information Quality:Average Overall Exercise Capacity: not assessed IMPRESSION Normal Myocardial Perfusion exercise stress study Conclusion 1. - Normal myocardial perfusion study with no evidence of ischemia 2. - Normal LVEF
[2017-04-27 16:57] VITALS: PULSE 79
--- NOTE | 2017-04-27 17:39 | CP.PCM.PN ---
<Amadeo Hernandez - Last Filed: 04/27/17 18:21> Subjective - Date & Time of Evaluation Date of Evaluation: 04/27/17 Time of Evaluation: 09:30 - Subjective Subjective: Progress note for Cardiology Service Patient seen and examined at bedside. States that nausea and abdominal pain which patient had the day prior has improved. Patient denies chest pain, shortness of breath, nausea, vomiting, diarrhea, weakness, dizziness. Objective - Vital Signs/Intake and Output Vital Signs (last 24 hours): Temp Pulse Resp BP Pulse Ox 98.4 F 79 18 103/57 L 95 04/27/17 15:15 04/27/17 16:52 04/27/17 15:15 04/27/17 15:15 04/27/17 15:15 - Medications Medications: Current Medications Amlodipine Besylate (Norvasc) 5 mg PO DAILY [facility] Last Admin: 04/27/17 09:32 Dose: 5 mg Aspirin (Aspirin Chewable) 81 mg PO DAILY [facility] Last Admin: 04/27/17 09:32 Dose: 81 mg Dextrose (Dextrose 50% Inj) 0 ml IV STAT PRN; Protocol PRN Reason: Hypoglycemia Protocol Dextrose (Glutose 15) 0 gm PO ONCE PRN; Protocol PRN Reason: Hypoglycemia Protocol Diazepam (Valium) 2 mg PO Q12 PRN PRN Reason: Vertigo Last Admin: 04/27/17 09:31 Dose: 2 mg Donepezil HCl (Aricept) 10 mg PO HS [facility] Last Admin: 04/26/17 21:48 Dose: 10 mg Ergocalciferol (Drisdol 50,000 Intl Units Cap) 1 cap PO QWK [facility] Stop: 07/11/17 10:01 Last Admin: 04/25/17 09:17 Dose: 1 cap Glucagon (Glucagen Diagnostic Kit) 0 mg IM STAT PRN; Protocol PRN Reason: Hypoglycemia Protocol Heparin Sodium (Porcine) (Heparin) 5,000 units SC Q8 [facility] Last Admin: 04/27/17 14:01 Dose: 5,000 units Dextrose (Dextrose 5% In Water 1000 Ml) 1,000 mls @ 0 mls/hr IV .Q0M PRN; Protocol; Per Protocol PRN Reason: Hypoglycemia Protocol Ceftriaxone Sodium (Rocephin Iv 1 Gm Duplex) 50 mls @ 100 mls/hr IVPB Q24H [facility] Last Admin: 04/26/17 18:45 Dose: 100 mls/hr Ibuprofen (Motrin Tab) 400 mg PO Q6H PRN PRN Reason: Pain, moderate (4-7) Last Admin: 04/27/17 09:31 Dose: 400 mg Insulin Human Regular (Novolin R) 0 unit SC ACHS MINAL PRN Reason: Protocol Last Admin: 04/27/17 12:51 Dose: 2 unit Lisinopril (Zestril) 20 mg PO DAILY [facility] Last Admin: 04/27/17 09:32 Dose: 20 mg Meclizine HCl (Antivert) 25 mg PO Q6 [facility] Last Admin: 04/27/17 12:57 Dose: 25 mg Ondansetron HCl (Zofran Inj) 4 mg IVP Q6 PRN PRN Reason: Nausea/Vomiting Last Admin: 04/24/17 06:34 Dose: 4 mg Pantoprazole Sodium (Protonix Ec Tab) 40 mg PO DAILY [facility] Last Admin: 04/27/17 09:31 Dose: 40 mg Rosuvastatin Calcium (Crestor) 10 mg PO HS [facility] Last Admin: 04/26/17 21:48 Dose: 10 mg - Labs Labs: 04/27/17 11:53 04/27/17 11:53 PT 12.8 SECONDS (9.7-12.2) H 04/26/17 07:54 INR 1.1 04/26/17 07:54 APTT 31 SECONDS (21-34) 04/23/17 10:05 Assessment and Plan - Assessment and Plan (Free Text) Assessment: Patient is a 76 year old female with a past medical history of of hypertension, IDDM, hyperlipidemia, and Alzheimer's, who presented with dizziness, vomiting, and chest pain. Plan: 1. Chest Pain - Improved - Stress test performed 04/26; no abnormal findings - Patient is cleared for d/c from a cardiology standpoint - Discussed with patient to follow up as outpatient for continued monitoring <Robert Padilla - Last Filed: 04/27/17 19:49> Objective - Vital Signs/Intake and Output Vital Signs (last 24 hours): Temp Pulse Resp BP Pulse Ox 98.4 F 79 18 103/57 L 95 04/27/17 15:15 04/27/17 16:52 04/27/17 15:15 04/27/17 15:15 04/27/17 15:15 - Labs Labs: 04/27/17 11:53 04/27/17 11:53 PT 12.8 SECONDS (9.7-12.2) H 04/26/17 07:54 INR 1.1 04/26/17 07:54 APTT 31 SECONDS (21-34) 04/23/17 10:05 Assessment and Plan (1) Chest pain Assessment & Plan: s/p stress test no evidence of ischemia stable from cardiac standpoint to dc home Status: Acute (2) Sinus bradycardia Assessment & Plan: HR stable Status: Acute (3) Diabetes Status: Chronic (4) HLD (hyperlipidemia) Status: Chronic (5) HTN (hypertension) Status: Chronic Attending/Attestation - Attestation I have personally seen and examined this patient.: Yes I have fully participated in the care of the patient.: Yes I have reviewed all pertinent clinical information, including history, physical exam and plan: Yes
--- NOTE | 2017-04-27 17:48 | CP.PCM.DIS ---
Provider - Provider Date of Admission: 04/25/17 08:05 Attending physician: Malgorzata Davalos DO Consults: Dr.Faraz Dr. Choi Time Spent in preparation of Discharge (in minutes): 35 Hospital Course - Lab Results Lab Results: Most Recent Lab Values WBC 12.0 K/uL (4.8-10.8) H 04/27/17 11:53 RBC 3.99 Mil/uL (3.80-5.20) 04/27/17 11:53 Hgb 11.9 g/dL (11.0-16.0) 04/27/17 11:53 Hct 35.0 % (34.0-47.0) 04/27/17 11:53 MCV 87.8 fL (81.0-99.0) 04/27/17 11:53 MCH 29.9 pg (27.0-31.0) 04/27/17 11:53 MCHC 34.0 g/dL (33.0-37.0) 04/27/17 11:53 RDW 13.5 % (11.5-14.5) 04/27/17 11:53 Plt Count 196 K/uL (130-400) 04/27/17 11:53 MPV 11.0 fL (7.2-11.7) 04/27/17 11:53 Neut % (Auto) 82.0 % (50.0-75.0) H 04/27/17 11:53 Lymph % (Auto) 14.2 % (20.0-40.0) L 04/27/17 11:53 Petroleum % (Auto) 3.3 % (0.0-10.0) 04/27/17 11:53 Eos % (Auto) 0.1 % (0.0-4.0) 04/27/17 11:53 Baso % (Auto) 0.4 % (0.0-2.0) 04/27/17 11:53 Neut # 9.9 K/uL (1.8-7.0) H 04/27/17 11:53 Lymph # 1.7 K/uL (1.0-4.3) 04/27/17 11:53 Petroleum # 0.4 K/uL (0.0-0.8) 04/27/17 11:53 Eos # 0.0 K/uL (0.0-0.7) 04/27/17 11:53 Baso # 0.0 K/uL (0.0-0.2) 04/27/17 11:53 ESR 21 mm/hr (0-20) H 04/24/17 07:00 PT 12.8 SECONDS (9.7-12.2) H 04/26/17 07:54 INR 1.1 04/26/17 07:54 APTT 31 SECONDS (21-34) 04/23/17 10:05 D-Dimer, Quantitative < 200 ng/mlDDU (0-243) 04/23/17 10:05 Sodium 132 mmol/L (132-148) 04/27/17 11:53 Potassium 4.5 mmol/L (3.6-5.2) 04/27/17 11:53 Chloride 97 mmol/L (98-107) L 04/27/17 11:53 Carbon Dioxide 25 mmol/L (22-30) 04/27/17 11:53 Anion Gap 14 (10-20) 04/27/17 11:53 BUN 30 mg/dL (7-17) H 04/27/17 11:53 Creatinine 0.7 mg/dL (0.7-1.2) 04/27/17 11:53 Est GFR ( Amer) > 60 04/27/17 11:53 Est GFR (Non-Af Amer) > 60 04/27/17 11:53 POC Glucose (mg/dL) 195 mg/dL (65-110) H 04/27/17 17:13 Random Glucose 221 mg/dL (65-105) H 04/27/17 11:53 Hemoglobin A1c 7.4 % (4.2-6.5) H 04/23/17 12:20 Calcium 9.2 mg/dl (8.6-10.4) 04/27/17 11:53 Total Bilirubin 0.3 mg/dL (0.2-1.3) 04/27/17 11:53 AST 24 U/L (14-36) 04/27/17 11:53 ALT 34 U/L (9-52) 04/27/17 11:53 Alkaline Phosphatase 51 U/L (38-126) 04/27/17 11:53 Total Creatine Kinase 47 U/L (30-135) 04/23/17 22:08 CK-MB (Mass) 0.70 ng/mL (0.0-3.38) 04/23/17 22:08 Troponin I < 0.0120 ng/mL (0.00-0.120) 04/23/17 22:08 C-React Prot High Sens 0.77 mg/L (1.00-3.00) L 04/24/17 07:00 NT-Pro-B Natriuret Pep 31.1 pg/mL (0-900) 04/23/17 10:05 Total Protein 8.2 g/dL (6.3-8.3) 04/27/17 11:53 Albumin 4.2 g/dL (3.5-5.0) 04/27/17 11:53 Globulin 4.0 gm/dL (2.2-3.9) H 04/27/17 11:53 Albumin/Globulin Ratio 1.0 (1.0-2.1) 04/27/17 11:53 Triglycerides 229 mg/dL (0-149) H D 04/24/17 07:00 Cholesterol 181 mg/dL (0-199) 04/24/17 07:00 LDL Cholesterol Direct 118 mg/dL (0-129) 04/24/17 07:00 HDL Cholesterol 42 mg/dL (30-70) 04/24/17 07:00 Lipase 56 U/L (23-300) 04/23/17 10:05 25-OH Vitamin D Total < 12.8 NG/ML (30.0-100.0) L 04/25/17 07:35 TSH 3rd Generation 2.38 mIU/L (0.46-4.68) 04/25/17 07:35 Urine Color Yellow (YELLOW) 04/23/17 22:08 Urine Clarity Hazy (Clear) 04/23/17 22:08 Urine pH 6.0 (5.0-8.0) 04/23/17 22:08 Ur Specific [place] 1.021 (1.003-1.030) 04/23/17 22:08 Urine Protein Negative mg/dL (NEGATIVE) 04/23/17 22:08 Urine Glucose (UA) Normal mg/dL (Normal) 04/23/17 22:08 Urine Ketones Negative mg/dL (NEGATIVE) 04/23/17 22:08 Urine Blood Negative (NEGATIVE) 04/23/17 22:08 Urine Nitrate Positive (NEGATIVE) H 04/23/17 22:08 Urine Bilirubin Negative (NEGATIVE) 04/23/17 22:08 Urine Urobilinogen 4.0 mg/dL (0.2-1.0) H 04/23/17 22:08 Ur Leukocyte Esterase 3+ Valeria/uL (Negative) H 04/23/17 22:08 Urine WBC (Auto) 83 /hpf (0-5) H 04/23/17 22:08 Urine RBC (Auto) 1 /hpf (0-3) 04/23/17 22:08 Ur Squamous Epith Cells 5 /hpf (0-5) 04/23/17 22:08 Ur Transition Epith Cell 1 /hpf (0-3) 04/23/17 22:08 Urine Bacteria Many (<OCC) H 04/23/17 22:08 RPR Nonreactive (NONREACTIVE) 04/25/17 07:35 Influenza Typ A,B (EIA) Negative for flu a/b (NEGATIVE) 04/23/17 12:30 - Hospital Course Hospital Course: HPI CC: "I'm having chest pain" HPI: Translation provided by daughter who was bedside. This is a 76 year old female with a PMHx of HTN, DM2, HLD, Alzheimers, who presents to the ER for a 48 hour history of dizziness, non-bloody/non-bilious emesis x5 and a 24 hour history of left sided intermittent chest pain that she describes as sharp in quality, rated 8/10, and that is reproducible. She also reports diaphoresis with the chest pain. She denies radiation of pain into her arms or neck. In the last 1 week she's also had a decrease in appetite with associated nausea as well as a frontotemporal headache. She was admitted for chest pain in 03/2016 but says this type of chest pain is different from that admission. 2 weeks ago she had a URI and was given OTC theraflu and the symptoms have resolved. Per daughter, she has a recent diagnosis of alzheimer's 10/2016 and began to see Neurologist Dr Cartwright beginning in 10/2016. At baseline the patient is able to ambulate, she lives with her daughter at home who is involved with the patient's care. Hospital course 04/25 Dr. Padilla consulted for chest pain. Troponins were negative. ACS ruled out. 04/24 Dr. Shepard was consulted for vomiting, unlikely to be due to a GI cause. 04/25 Dr. Choi consulted for neurology. Patient got CT Head and MRI of head both not showing any acute abnormality that would indicate vertigo. Patient continues to have "dizziness," and feels uncomfortable with walking. CTA of head and neck showed normal carotid arteries. 04/26 Patient underwent stress test by Dr. Padilla for her high risk variables. Patient was given meclizine and noted a marked improvement of symptoms. Patient was cleared by physical therapy after evaluation to be discharged home. upon discharge. Patient was given prescription for rolling walker, clotrimazole , and meclizine. Patient instructed to follow up with her doctor at the clinic for referral to ENT for treatment of benign positional vertigo. Per nursing, abdominal fold has foul smell, upon checking patient, antifungal medication ordered. - Date & Time of H&P Date of H&P: 04/27/17 Time of H&P: 17:48 Discharge Exam - Head Exam Head Exam: NORMAL INSPECTION - Eye Exam Eye Exam: EOMI - ENT Exam ENT Exam: Mucous Membranes Moist - Respiratory Exam Respiratory Exam: absent: Accessory Muscle Use - Cardiovascular Exam Cardiovascular Exam: REGULAR RHYTHM, +S1, +S2 - GI/Abdominal Exam GI & Abdominal Exam: Soft. absent: Tenderness Additional comments: below abdominal fold was found to have fungal infection. area of erythema - Skin Skin Exam: Dry, Warm Discharge Plan - Discharge Medications Prescriptions: Clotrimazole 1% Cream [Lotrimin 1%] 15 gm TP DAILY PRN #1 cre PRN Reason: Itching / Pruritus Meclizine [Meclizine*] 25 mg PO BID #14 tab - Follow Up Plan Condition: FAIR Disposition: HOME/ ROUTINE Instructions: Meclizine (By mouth), Chest Pain (DC), Heart Healthy Diet (DC), Vertigo (DC) Additional Instructions: physical therapy if needed follow up at clinic for referral to ENT for benign positional vertigo treatment follow up at clinic as soon as possible for follow up Referrals: [facility] [Outside] Syed Bergeron MD [Staff Provider] -
[2017-04-30] MEDS ORDERED: Ergocalciferol 50,000 Intl Units Cap PO SCH (10:00)
== END 2017-04-27 19:10 | disposition home or self-care (01) | DRG 143 ==
LOC: C.ER 09:22 → C.9E 10:42 → C.6T 11:30 → C.9E 11:35 → C.6T 11:57 → C.9E 12:07 → C.6T 12:08 → OBSVTOIN 04-25 08:05
PROVIDERS: ADMIT Hospitalist; ATTEND Hospitalist
DX: R07.89 Other chest pain (principal); H81.10 Benign paroxysmal vertigo, unspecified ear; I25.10 Atherosclerotic heart disease of native coronary artery without angina pectoris; I10 Essential (primary) hypertension; G30.9 Alzheimer's disease, unspecified; F02.80 Dementia in other diseases classified elsewhere, unspecified severity, without behavioral disturbance, psychotic disturbance, mood disturbance, and anxiety; I07.1 Rheumatic tricuspid insufficiency; E11.9 Type 2 diabetes mellitus without complications; B48.8 Other specified mycoses; E55.9 Vitamin D deficiency, unspecified; J06.9 Acute upper respiratory infection, unspecified; E78.00 Pure hypercholesterolemia, unspecified; E78.5 Hyperlipidemia, unspecified; Z79.4 Long term (current) use of insulin; Z79.82 Long term (current) use of aspirin

== ENCOUNTER 2018-03-25 11:41 | Emergency (ER) | payer OTHER ==
[2018-03-25 11:52] VITALS: BMI 23.6
[2018-03-25 12:11] VITALS: TEMP 98.5
--- NOTE | 2018-03-25 12:28 | C.PDOC ---
History Of Present Illness 77 y/o female with history of DM, HTN and Alzheimer brought to ED by family member with c/o dizziness, nausea and vomiting for 2 days. As per family member patient ran out of meclizine which has helped previously for chronic vertigo. As per family member no recent fall or injury. No other complaints at this time. Time Seen by Provider: 03/25/18 12:12 Chief Complaint (Nursing): Dizziness/Lightheaded History Per: Family History/Exam Limitations: clinical condition Onset/Duration Of Symptoms: Days Current Symptoms Are (Timing): Still Present Past Medical History Reviewed: Historical Data, Nursing Documentation, Vital Signs Vital Signs: Last Vital Signs Temp 98.5 F 03/25/18 11:57 Pulse 60 03/25/18 11:57 Resp 20 03/25/18 11:57 BP 142/68 03/25/18 11:57 Pulse Ox 96 03/25/18 11:57 - Medical History PMH: Alzheimer's Disease (beginning stages), Diabetes, HTN, Hypercholesterolemia Surgical History: No Surg Hx - [facility] Procedures CATARAC PHACOEMULS/ASPIR (03/22/13) INSERT LENS AT CATAR EXT (03/22/13) Family History: States: No Known Family Hx - Social History Hx Tobacco Use: No Hx Alcohol Use: No Hx Substance Use: No - Immunization History Hx Tetanus Toxoid Vaccination: No Hx Influenza Vaccination: No Hx Pneumococcal Vaccination: No Review Of Systems Constitutional: Negative for: Fever, Chills Gastrointestinal: Positive for: Nausea, Vomiting. Negative for: Abdominal Pain Skin: Negative for: Rash Neurological: Positive for: Dizziness. Negative for: Weakness, Numbness Physical Exam - Physical Exam Additional Physical Exam Comments: Constitutional: No acute distress. Head: Normocephalic. Atraumatic. Eyes: PERRL. ENT: Moist mucous membranes. Neck: Supple. Cardiovascular: Regular rate. Radial pulse 2+ bilaterally. Chest: No tenderness. Respiratory: Clear to auscultation bilaterally. GI: Soft. Nontender. Nondistended. Back: No CVA tenderness. Musculoskeletal: No tenderness or swelling of extremities. Skin: No rash. Neurologic: Alert, no focal deficit. ED Course And Treatment O2 Sat by Pulse Oximetry: 96 (RA) Pulse Ox Interpretation: Normal Medical Decision Making Medical Decision Making: Meclizine administered. No symptoms at this time. Patient discharged on meclizine and instructed to follow up with PMD in 1-2 days. Disposition - Disposition Referrals: Bebe Marrero MD [Staff Provider] - Disposition: HOME/ ROUTINE Disposition Time: 13:28 Condition: STABLE Prescriptions: Meclizine [Antivert] 25 mg PO TID PRN #20 tab PRN Reason: Dizziness Instructions: Vertigo (a Type of Dizziness) Forms: [employer] (Monegasque) - Clinical Impression Clinical Impression: Vertigo - Scribe Statement The provider has reviewed the documentation as recorded by the Kelsiibjovan Ricardo All medical record entries made by the Kelsiibjovan were at my direction and personally dictated by me. I have reviewed the chart and agree that the record accurately reflects my personal performance of the history, physical exam, medical decision making, and the department course for this patient. I have also personally directed, reviewed, and agree with the discharge instructions and disposition.
[2018-03-25 13:35] VITALS: BP 148/65; PULSE 56; RESP 18; O2SAT 100
--- NOTE | 2018-03-26 06:40 | CARD ---
APPROVED REPORT Date of service: 03/25/2018 EKG Measurement Heart [id number] <Conclusion> Sinus bradycardia Otherwise normal ECG
== END 2018-03-25 13:34 | disposition home or self-care (01) ==
LOC: C.ER 11:41
DX: R42 Dizziness and giddiness (principal); E11.9 Type 2 diabetes mellitus without complications; I10 Essential (primary) hypertension; G30.9 Alzheimer's disease, unspecified